=== PATIENT | female | born 1955 | race Caucasian/White ===

== ENCOUNTER 2016-12-31 23:57 | Emergency (ER) | payer MEDICARE ==
[2017-01-01] MEDS ORDERED: Sodium Chloride 0.9% 1000 ML 1,000 ML IV STA (00:10)
--- NOTE | 2017-01-01 00:14 | ERPHSYRPT ---
- History of Present Illness Time Seen by Provider: 01/01/17 00:11 Source: patient Exam Limitations: no limitations Physician History: 61-year-old female came to the emergency room with complaining of unable to urinate, and when She is dribbling L amount of urine with some blood in it. She has this problem for last 3 days. She denies any fever, chills, nausea, vomiting. Timing/Duration: day(s) (3 days) Onset Location: suprapubic Sexual intercourse history: non-contributory Modifying Factors: Improves With: nothing Associated Symptoms: dysuria, urinary frequency Allergies/Adverse Reactions: tramadol Allergy (Verified 04/08/16 10:34) Home Medications: Levothyroxine Sodium [Synthroid] 75 mcg PO DAILY 09/20/13 [History] Simvastatin 40 mg [Zocor 40 mg] 40 mg PO HS 09/20/13 [History] Duloxetine HCl 30 mg [Cymbalta 30 MG Capsule] 60 mg PO DAILY 03/10/15 [ History] Omeprazole 20 MG [Prilosec 20 mg] 20 mg PO BID 03/10/15 [History] Albuterol Common Canister [Proventil Common Canister] UD 04/08/16 [History ] Aripiprazole [Abilify] 2 mg PO DAILY 04/08/16 [History] Budesonide/Formoterol Fumarate [Symbicort 160-4.5 Mcg Inhaler] 2 puffs IH BID [History] Cyclobenzaprine HCl 10 mg [Cyclobenzaprine 10 MG] 10 mg PO HS 04/08/16 [ History] Diclofenac Sodium 75 mg PO BID 04/08/16 [History] Ergocalciferol (Vitamin D2) [Vitamin D2] 50,000 unit PO DAILY 04/08/16 [History] Hydrocodone Bit/Acetaminophen [Hydrocodon-Acetaminoph 7.5-325] BID 04/08/16 [ History] Losartan Potassium 25 mg PO DAILY 04/08/16 [History] Magnesium Oxide [Magnesium] 400 mg PO DAILY 04/08/16 [History] Hx Tetanus, Diphtheria Vaccination/Date Given: Yes Hx Influenza Vaccination/Date Given: No Hx Pneumococcal Vaccination/Date Given: No - Review of Systems Constitutional: No Fever, No Chills Eyes: No Symptoms Ears, Nose, & Throat: No Symptoms Respiratory: No Cough, No Dyspnea Cardiac: No Chest Pain, No Edema, No Syncope Abdominal/Gastrointestinal: No Abdominal Pain, No Nausea, No Vomiting, No Diarrhea Genitourinary Symptoms: Dysuria, Frequency, Hematuria, Hesitancy, Incontinence, Urgency, Urinary Retention Musculoskeletal: No Back Pain, No Neck Pain Skin: No Rash Neurological: No Dizziness, No Focal Weakness, No Sensory Changes Psychological: No Symptoms Endocrine: No Symptoms All Other Systems: Reviewed and Negative - Past Medical History Pertinent Past Medical History: Yes Neurological History: No Pertinent History ENT History: No Pertinent History Cardiac History: Angina, High Cholesterol, Hypertension Respiratory History: Bronchitis, COPD Endocrine Medical History: Hypothyroidism Musculoskeletal History: Arthritis GI Medical History: No Pertinent History History: No Pertinent History Psycho-Social History: No Pertinent History, Anxiety Female Reproductive Disorders: No Pertinent History - Past Surgical History Past Surgical History: Yes Neuro Surgical History: No Pertinent History Cardiac: No Pertinent History Respiratory: No Pertinent History Gastrointestinal: No Pertinent History Genitourinary: No Pertinent History Musculoskeletal: Orthopedic Surgery Female Surgical History: Tubal Ligation Other Surgical History: left shoulder - Social History Smoking Status: Never smoker Exposure to second hand smoke: No Drug Use: none Patient Lives Alone: No - Nursing Vital Signs Nursing Vital Signs: Initial Vital Signs Temperature 97.9 F 01/01/17 00:00 Pulse Rate 92 H 01/01/17 00:00 Blood Pressure 152/73 01/01/17 00:00 O2 Sat by Pulse Oximetry 96 01/01/17 00:00 Pain Scale Pain Intensity 10 - Physical Exam General Appearance: no apparent distress, alert Eye Exam: PERRL/EOMI, eyes nml inspection Ears, Nose, Throat Exam: normal ENT inspection, TMs normal, pharynx normal, moist mucous membranes Neck Exam: normal inspection, non-tender, supple, full range of motion Respiratory Exam: normal breath sounds, lungs clear, No respiratory distress Cardiovascular Exam: regular rate/rhythm, normal heart sounds, normal peripheral pulses Gastrointestinal/Abdomen Exam: soft, No tenderness, No mass Back Exam: normal inspection, normal range of motion, No CVA tenderness, No vertebral tenderness Extremity Exam: normal inspection, normal range of motion, pelvis stable Neurologic Exam: alert, oriented x 3, 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, 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, normal mood/affect, sensation nml, No motor deficits Skin Exam: normal color, warm, dry Lymphatic Exam: No adenopathy - Course Nursing assessment & vital signs reviewed: Yes Ordered Tests: Active Orders 24 hr Category Date Time Status Catheter-[place] STAT Care 01/01/17 00:10 Active IV Insertion STAT Care 01/01/17 00:18 Active CBC W DIFF Stat Lab 01/01/17 00:20 Completed CMP Stat Lab 01/01/17 00:20 Completed CULTURE,URINE Stat Lab 01/01/17 00:39 Received UA W/ MICROSCOPIC Stat Lab 01/01/17 00:39 Completed Urine Triage Profile Stat Lab 01/01/17 00:39 Completed Medication Summary Discontinued Medications Generic Name Dose Route Start Last Admin Trade Name Freq PRN Reason Stop Dose Admin Sodium Chloride 1,000 mls @ 999 mls/hr 01/01/17 00:10 01/01/17 00:33 Sodium Chloride 0.9% 1000 Ml IV 01/01/17 01:10 999 mls/hr .Q1H1M STA Administration Sodium Chloride Confirm 01/01/17 00:19 Sodium Chloride 0.9% 1000 Ml Administered 01/01/17 00:20 Dose 1,000 mls @ ud .ROUTE .STK-MED ONE Lab/Rad Data: Laboratory Result Diagrams 01/01/17 00:20 01/01/17 00:20 Laboratory Results 01/01/17 01/01/17 01/01/17 Range/Units 00:39 00:39 00:20 WBC (4.0-10.5) K/mm3 RBC (4.1-5.4) M/mm3 Hgb (12.0-16.0) gm/dl Hct (35-47) % MCV (78-100) fl MCH (26-32) pg MCHC (32-36) g/dl RDW (11.5-14.0) % Plt Count (150-450) K/mm3 MPV (6-9.5) fl Gran % (36.0-66.0) % Lymphocytes % (24.0-44.0) % Monocytes % (0.0-12.0) % Eosinophils % (0.00-5.0) % Basophils % (0.0-0.4) % Basophils # (0-0.4) Sodium 144 (136-145) mEq/L Potassium 3.9 (3.5-5.1) mEq/L Chloride 106 (98-107) mEq/L Carbon Dioxide 28.1 (21-32) mEq/L Anion Gap 13.6 (5-15) MEQ/L BUN 9 (9-20) mg/dL Creatinine 0.92 (0.55-1.30) mg/dl Estimated GFR > 60 ML/MIN Glucose 145 H (70-110) MG/DL Calcium 10.0 (8.5-10.1) mg/dL Total Bilirubin 0.20 (0.2-1.0) mg/dL AST 78 H (15-37) U/L ALT 79 H (12-78) U/L Alkaline Phosphatase 101 (46-116) U/L Serum Total Protein 7.2 (6.4-8.2) gm/dL Albumin 3.1 L (3.4-5.0) g/dL Ur Collection Type VOID Urine Color YELLOW (YELLOW) Urine Appearance CLOUDY (CLEAR) Urine pH 7.0 (5-6) Ur Specific [place] 1.015 (1.005-1.025) Urine Protein 100 (Negative) Urine Ketones NEGATIVE (NEGATIVE) Urine Blood 250 (0-5) Ken/ul Urine Nitrite NEGATIVE (NEGATIVE) Urine Bilirubin NEGATIVE (NEGATIVE) Urine Urobilinogen NORMAL (0-1) mg/dL Ur Leukocyte Esterase 2+ (NEGATIVE) Urine Microscopic RBC 15-25 (0-2) /HPF Urine Microscopic WBC 50-100 (0-5) /HPF Ur Epithelial Cells FEW (FEW) /HPF Urine Bacteria FEW (NEGATIVE) /HPF Urine Glucose NEGATIVE (NEGATIVE) mg/dL Urine Opiates Level NEG. (NEGATIVE) Ur Methadone NEG. (NEGATIVE) Urine Barbiturates NEG. (NEGATIVE) Ur Phencyclidine (PCP) NEG. (NEGATIVE) Urine Amphetamine NEG. (NEGATIVE) U Benzodiazepine Level NEG. (NEGATIVE) Urine Cocaine NEG. (NEGATIVE) Urine Marijuana (THC) NEG. (NEGATIVE) Specimen Received 01/01/17 0035 01/01/17 Range/Units 00:20 WBC 10.4 (4.0-10.5) K/mm3 RBC 3.90 L (4.1-5.4) M/mm3 Hgb 11.5 L (12.0-16.0) gm/dl Hct 36.6 (35-47) % MCV 93.8 (78-100) fl MCH 29.4 (26-32) pg MCHC 31.4 L (32-36) g/dl RDW 14.4 H (11.5-14.0) % Plt Count 255 (150-450) K/mm3 MPV 9.5 (6-9.5) fl Gran % 54.0 (36.0-66.0) % Lymphocytes % 36.0 (24.0-44.0) % Monocytes % 7.0 (0.0-12.0) % Eosinophils % 2.4 (0.00-5.0) % Basophils % 0.6 (0.0-0.4) % Basophils # 0.06 (0-0.4) Sodium (136-145) mEq/L Potassium (3.5-5.1) mEq/L Chloride (98-107) mEq/L Carbon Dioxide (21-32) mEq/L Anion Gap (5-15) MEQ/L BUN (9-20) mg/dL Creatinine (0.55-1.30) mg/dl Estimated GFR ML/MIN Glucose (70-110) MG/DL Calcium (8.5-10.1) mg/dL Total Bilirubin (0.2-1.0) mg/dL AST (15-37) U/L ALT (12-78) U/L Alkaline Phosphatase (46-116) U/L Serum Total Protein (6.4-8.2) gm/dL Albumin (3.4-5.0) g/dL Ur Collection Type Urine Color (YELLOW) Urine Appearance (CLEAR) Urine pH (5-6) Ur Specific [place] (1.005-1.025) Urine Protein (Negative) Urine Ketones (NEGATIVE) Urine Blood (0-5) Ken/ul Urine Nitrite (NEGATIVE) Urine Bilirubin (NEGATIVE) Urine Urobilinogen (0-1) mg/dL Ur Leukocyte Esterase (NEGATIVE) Urine Microscopic RBC (0-2) /HPF Urine Microscopic WBC (0-5) /HPF Ur Epithelial Cells (FEW) /HPF Urine Bacteria (NEGATIVE) /HPF Urine Glucose (NEGATIVE) mg/dL Urine Opiates Level (NEGATIVE) Ur Methadone (NEGATIVE) Urine Barbiturates (NEGATIVE) Ur Phencyclidine (PCP) (NEGATIVE) Urine Amphetamine (NEGATIVE) U Benzodiazepine Level (NEGATIVE) Urine Cocaine (NEGATIVE) Urine Marijuana (THC) (NEGATIVE) Specimen Received - Progress Progress: improved Air Movement: good Blood Culture(s) Obtained: No Antibiotics given: No Counseled pt/family regarding: lab results, diagnosis, need for follow-up - Departure Time of Disposition: 01:16 Departure Disposition: Home Clinical Impression: Urinary tract infection Qualifiers: Urinary tract infection type: acute pyelonephritis Qualified Code(s): N10 - Acute pyelonephritis Condition: Stable Critical Care Time: No Referrals: PATY ABDI [Primary Care Provider] - Instructions: Urinary Tract Infection (UTI) Additional Instructions: URINARY TRACT INFECTION 1. You will need to drink plenty of fluids in order to keep your urinary system flushed. These fluids should mainly consist of water and juices. 2. Take medications as directed. You need to completely finish any antiobiotic prescription given. 3. Try to avoid coffee, tea, alcohol, and seasoned foods as they may cause bladder irritation. 4. If signs and symptoms persist after 3-4 days, you will need to follow up with your family physician. 5. Female Patients: A. Avoid intercourse for 3-4 days. B. Empty bladder before and after intercourse to reduce risk of re- infection. C. After emptying bladder, wipe from front to back to reduce the risk of re- infection. Prescriptions: Ciprofloxacin [Cipro 500 MG] 500 mg PO BIDAC #20 tablet
[2017-01-01] MEDS ORDERED: Sodium Chloride 0.9% 1000 ML 1,000 ML ONE (00:19)
[2017-01-01 00:26] LABS: BASOPHIL % 0.6 % (0.0-0.4); Eosinophil % 2.4 % (0.00-5.0); Mean Cell Volume 93.8 fl (78-100); Mean Platelet Volume 9.5 fl (6-9.5); Platelet Count 255 K/mm3 (150-450); Red Cell Distribution Width 14.4 % (11.5-14.0); White Blood Count 10.4 K/mm3 (4.0-10.5)
[2017-01-01 00:30] LABS: Mean Corpuscular Hemoglobin 29.4 pg (26-32)
[2017-01-01 00:45] LABS: Collection Type VOID
[2017-01-01 00:45] LABS: ALBUMIN 3.1 g/dL (3.4-5.0); ALKALINE PHOSPHATASE 101 U/L (46-116); ANION GAP 13.6 MEQ/L (5-15); BLOOD UREA NITROGEN 9 mg/dL (9-20); CHLORIDE 106 mEq/L (98-107); Carbon Dioxide 28.1 mEq/L (21-32); Glucose 145 MG/DL (70-110); Potassium 3.9 mEq/L (3.5-5.1); SGOT/AST 78 U/L (15-37); SGPT/ALT 79 U/L (12-78); SODIUM 144 mEq/L (136-145); Total Protein 7.2 gm/dL (6.4-8.2)
[2017-01-01 00:46] LABS: ADD URINE CULTURE? YES (NO); Bacteria FEW /HPF (NEGATIVE); Bilirubin NEGATIVE (NEGATIVE); Blood 250 Ery/ul (0-5); COMPLETE URINE MICROSCOPIC? YES; Epithelial Cells FEW /HPF (FEW); Glucose NEGATIVE (NEGATIVE); Leukocyte Esterase 2+ (NEGATIVE); WBC 50-100 /HPF (0-5)
[2017-01-01] MEDS ORDERED: Rocephin 1000 MG INJ** 1,000 MG in Sodium Chloride 0.9% 100 ML IVPB 100 ML IV ONE (01:14)
[2017-01-01] MEDS ORDERED: ROCEPHIN 1 Gm-D5w 50 ml Bag** 1 G/50 ML IVPB IV ONE (01:14)
[2017-01-01 01:47] VITALS: BP 138/79; PULSE 82; O2SAT 97
== END 2017-01-01 01:43 | disposition home or self-care (01) ==
LOC: ED 23:57
DX: N10 Acute pyelonephritis (principal); Z79.891 Long term (current) use of opiate analgesic
CPT/HCPCS: 36000; 36415; 51702; 80053; 80307; 81000; 85025; 87086; 96360; 96365; 99284; J0696

== ENCOUNTER 2017-04-22 16:13 | Emergency (ER) | payer MEDICARE ==
[2017-04-22] MEDS ORDERED: DUONEB 0.5-3 MG/3 ml Neb IH ONE ×2 (16:50→16:59)
[2017-04-22] MEDS ORDERED: ROCEPHIN 1 Gm-D5w 50 ml Bag** 1 G/50 ML IVPB IV STA (16:50)
--- NOTE | 2017-04-22 16:57 | ERPHSYRPT ---
- History of Present Illness Time Seen by Provider: 04/22/17 16:30 Source: patient Exam Limitations: clinical condition Patient Subjective Stated Complaint: PT states "I woke up this morning and I was short of breath. I have been coughing like crazy and having hot flashes." Triage Nursing Assessment: Pt alert and oriented X 3, skin pwd. Pt ambulates without difficulty, able to speak in clear full sentences. lung sounds are clear. Physician History: PATIENT WITH A HISTORY OF ASTHMA COMPLAINS OF A PRODUCTIVE COUGH, WHITE SPUTUM ASSOCIATED WITH DYSPNEA, DENIES CHEST PAIN, FEVER OR CHILLS. Timing/Duration: today Cough Quality/Degree: productive cough Possible Cause: occasional episodes Modifying Factors: Improves With: coughing, deep breath Associated Symptoms: cough International travel in last 2 weeks: No Allergies/Adverse Reactions: tramadol Allergy (Verified 04/08/16 10:34) Home Medications: Levothyroxine Sodium [Synthroid] 75 mcg PO DAILY 09/20/13 [History] Simvastatin 40 mg [Zocor 40 mg] 40 mg PO HS 09/20/13 [History] Duloxetine HCl 30 mg [Cymbalta 30 MG Capsule] 60 mg PO DAILY 03/10/15 [ History] Omeprazole 20 MG [Prilosec 20 mg] 20 mg PO BID 03/10/15 [History] Aripiprazole [Abilify] 2 mg PO DAILY 04/08/16 [History] Budesonide/Formoterol Fumarate [Symbicort 160-4.5 Mcg Inhaler] 2 puffs IH BID [History] Ergocalciferol (Vitamin D2) [Vitamin D2] 50,000 unit PO DAILY 04/08/16 [History] Hydrocodone Bit/Acetaminophen [Hydrocodon-Acetaminoph 7.5-325] BID 04/08/16 [ History] Losartan Potassium 25 mg PO DAILY 04/08/16 [History] Magnesium Oxide [Magnesium] 400 mg PO DAILY 04/08/16 [History] Albuterol Sulfate [Ventolin Hfa] 1 puff IH DAILY 04/22/17 [History] Buprenorphine HCl [Belbuca] 600 mcg BC Q12H 04/22/17 [History] Fish Oil/Dha/Epa [Fish Oil 1,200 mg Fish Oil] 1 each PO DAILY 04/22/17 [History] Gabapentin [Gabapentin] 600 mg PO TID 04/22/17 [History] Hx Tetanus, Diphtheria Vaccination/Date Given: No Hx Influenza Vaccination/Date Given: No Hx Pneumococcal Vaccination/Date Given: No Immunizations Up to Date: Yes - Review of Systems Constitutional: No Fever, No Chills Eyes: No Symptoms Ears, Nose, & Throat: No Symptoms Respiratory: Cough, No Dyspnea Cardiac: No Symptoms, No Chest Pain, No Edema, No Syncope Abdominal/Gastrointestinal: No Symptoms, No Abdominal Pain, No Nausea, No Vomiting, No Diarrhea Genitourinary Symptoms: No Symptoms, No Dysuria Musculoskeletal: No Back Pain, No Neck Pain Skin: No Rash Neurological: No Dizziness, No Focal Weakness, No Sensory Changes Psychological: No Symptoms Endocrine: No Symptoms All Other Systems: Reviewed and Negative - Past Medical History Pertinent Past Medical History: Yes Neurological History: No Pertinent History ENT History: No Pertinent History Cardiac History: Angina, High Cholesterol, Hypertension Respiratory History: Bronchitis, COPD Endocrine Medical History: Hypothyroidism Musculoskeletal History: Arthritis GI Medical History: No Pertinent History History: No Pertinent History Psycho-Social History: No Pertinent History, Anxiety Female Reproductive Disorders: No Pertinent History - Past Surgical History Past Surgical History: Yes Neuro Surgical History: No Pertinent History Cardiac: No Pertinent History Respiratory: No Pertinent History Gastrointestinal: No Pertinent History Genitourinary: No Pertinent History Musculoskeletal: Orthopedic Surgery Female Surgical History: Tubal Ligation Other Surgical History: left shoulder - Social History Smoking Status: Former smoker Exposure to second hand smoke: Yes Drug Use: none Patient Lives Alone: No - Female History Hx Last Menstrual Period: menopause Hx Now: No - Nursing Vital Signs Nursing Vital Signs: Initial Vital Signs Temperature 98.2 F 04/22/17 16:14 Pulse Rate 64 04/22/17 16:14 Respiratory Rate 20 04/22/17 16:14 Blood Pressure 150/94 04/22/17 16:14 O2 Sat by Pulse Oximetry 96 04/22/17 16:14 Pain Scale Pain Intensity 0 - Physical Exam General Appearance: no apparent distress, alert Eye Exam: PERRL/EOMI, eyes nml inspection Ears, Nose, Throat Exam: normal ENT inspection, TMs normal, pharynx normal, moist mucous membranes Neck Exam: normal inspection, non-tender, supple, full range of motion Respiratory Exam: lungs clear, diminished breath sounds (NO WHEEZES OR RHONCHI) , other (DECREASED BREATH SOUNDS BASES), No respiratory distress Cardiovascular Exam: regular rate/rhythm, normal heart sounds Gastrointestinal/Abdomen Exam: soft, normal bowel sounds (NONTENDER), No tenderness Back Exam: normal inspection, No CVA tenderness, No vertebral tenderness Extremity Exam: normal inspection, normal range of motion Neurologic Exam: alert, oriented x 3, cooperative, normal mood/affect, sensation nml, No motor deficits Skin Exam: normal color, warm, dry, No rash Lymphatic Exam: No adenopathy SpO2: 96 Oxygen Delivery: Room Air - Course EKG Interpreted by Me: RATE, Sinus Rhythm, NORMAL AXIS - Radiology Exams Chest X-ray Interpretation: Interpreted by me (LEFT BASILAR ATELECTASIS VS INFILTRATE) Ordered Tests: Active Orders 24 hr Category Date Time Status EKG-ER Only STAT Care 04/22/17 16:27 Active IV Insertion STAT Care 04/22/17 16:50 Active CHEST 1 VIEW (PORTABLE) Stat Exams 04/22/17 16:51 Taken CBC W DIFF Stat Lab 04/22/17 17:32 Completed Respiratory Nebulizer STAT RT 04/22/17 16:51 Completed Medication Summary Generic Name Dose Route Start Last Admin Trade Name Freq PRN Reason Stop Dose Admin Sodium Chloride 1,000 mls @ 50 mls/hr 04/22/17 17:00 04/22/17 17:14 Sodium Chloride 0.9% 1000 Ml IV 05/22/17 16:59 50 mls/hr .Q20H DYLAN Administration Discontinued Medications Generic Name Dose Route Start Last Admin Trade Name Freq PRN Reason Stop Dose Admin Albuterol/Ipratropium 3 ml 04/22/17 16:50 04/22/17 17:04 Duoneb 0.5-3 Mg/3 Ml Neb IH 04/22/17 16:51 3 ml STAT ONE Administration Albuterol/Ipratropium Confirm 04/22/17 16:59 Duoneb 0.5-3 Mg/3 Ml Neb Administered 04/22/17 17:00 Dose 3 ml IH .STK-MED ONE Ceftriaxone Sodium/Dextrose 1 g in 50 mls @ 100 mls/hr 04/22/17 16:50 17:14 Rocephin 1 Gm-D5w 50 Ml Bag IV 04/22/17 17:19 100 mls/hr STAT STA Administration Ceftriaxone Sodium/Dextrose Confirm 04/22/17 17:08 Rocephin 1 Gm-D5w 50 Ml Bag Administered 04/22/17 17:09 Dose 1 g in 50 mls @ ud IV .STK-MED ONE Lab/Rad Data: Laboratory Result Diagrams 04/22/17 17:32 Laboratory Results 04/22/17 Range/Units 17:32 WBC 6.3 (4.0-10.5) K/mm3 RBC 4.05 L (4.1-5.4) M/mm3 Hgb 11.9 L (12.0-16.0) gm/dl Hct 38.4 (35-47) % MCV 94.8 (78-100) fl MCH 29.3 (26-32) pg MCHC 31.0 L (32-36) g/dl RDW 13.8 (11.5-14.0) % Plt Count 183 (150-450) K/mm3 MPV 9.6 H (6-9.5) fl Gran % 43.4 (36.0-66.0) % Lymphocytes % 43.9 (24.0-44.0) % Monocytes % 7.3 (0.0-12.0) % Eosinophils % 4.6 (0.00-5.0) % Basophils % 0.8 (0.0-0.4) % Basophils # 0.05 (0-0.4) - Progress Progress: improved Progress Note: 04/22/17 16:57 ADMINISTERED DUONEB, IV NORMAL SALINE 100ML/HR, ROCEPHIN 1GM IVPB Counseled pt/family regarding: lab results, diagnosis, need for follow-up, rad results - Departure Time of Disposition: 18:20 Departure Disposition: Home ([id number]) Clinical Impression: ACUTE BRONCHITIS Condition: Stable Critical Care Time: No Referrals: PATY ABDI [Primary Care Provider] - Additional Instructions: CONTINUE TO USE INHALERS DIRECTED. ANTIBIOTIC OMNICEF 300MG TWICE DAILY FOR 10 DAYS. TAKE OVER THE COUNTER COUGH FOR COUGHING. OBTAIN NEBULIZER MACHINE AND USE ALBUTEROL NEBULIZER EVERY 4 HOURS NEEDED. CONSULT YOUR PRIMARY CARE PROVIDER FOR FOLLOWUP Prescriptions: Albuterol 2.5 mg/3 ml Neb [Proventil 2.5 mg/3 ml Neb] 2.5 mg IH STAT #30 neb Cefdinir [Omnicef 300 mg] 300 mg PO BID #20 capsule
[2017-04-22] MEDS ORDERED: Sodium Chloride 0.9% 1000 ML 1,000 ML IV SCH (17:00)
[2017-04-22] MEDS ORDERED: Sodium Chloride 0.9% 1000 ML 1,000 ML ONE (17:08)
[2017-04-22] MEDS ORDERED: ROCEPHIN 1 Gm-D5w 50 ml Bag** 1 G/50 ML IVPB IV ONE (17:08)
[2017-04-22 17:35] LABS: BASOPHIL % 0.8 % (0.0-0.4); Basophil (Absolute #) 0.05 (0-0.4); Eosinophil % 4.6 % (0.00-5.0); Eosinophil (Absolute #) 0.29 (0-0.5); Granulocyte Absolute (ANC) 2.72 (1.4-6.9); Granulocytes % 43.4 % (36.0-66.0); Hematocrit 38.4 % (35-47); Hemoglobin 11.9 gm/dl (12.0-16.0); Lymphocyte (Absolute #) 2.75 (1.0-4.6); Lymphocytes % 43.9 % (24.0-44.0); Mean Cell Volume 94.8 fl (78-100); Mean Platelet Volume 9.6 fl (6-9.5); Monocyte (Absolute #) 0.46 (0.0-1.3); Monocytes % 7.3 % (0.0-12.0); Platelet Count 183 K/mm3 (150-450); Red Blood Count 4.05 M/mm3 (4.1-5.4); Red Cell Distribution Width 13.8 % (11.5-14.0); White Blood Count 6.3 K/mm3 (4.0-10.5)
[2017-04-22 17:44] LABS: Mean Corpuscular Hemoglobin 29.3 pg (26-32)
[2017-04-22 17:58] VITALS: O2SAT 96
[2017-04-22 18:44] VITALS: BP 158/79; PULSE 78
--- NOTE | 2017-04-22 22:48 | XRAY ---
Indication: Cough and dyspnea. Comparison: March 10, 2015. Portable chest demonstrates stable left midlung fibrosis/scarring. Remaining lungs clear. Heart is not enlarged for AP portable technique. Bony thorax intact again with mild degenerative changes. Impression: Stable nonacute chest with chronic features.
== END 2017-04-22 18:45 | disposition home or self-care (01) ==
LOC: ED 16:13
DX: J20.9 Acute bronchitis, unspecified (principal)
CPT/HCPCS: 36415; 71045; 85025; 93005; 94640; 96360; 96361; 96365; 99284; J0696; A9270-GY

== ENCOUNTER 2018-11-14 18:52 | Emergency (ER) | payer MEDICARE ==
[2018-11-14] MEDS ORDERED: Zofran 4 MG/2 ML VIAL IV ONE (19:51)
[2018-11-14] MEDS ORDERED: Sodium Chloride 0.9% 1000 ML 1,000 ML IV STA (19:51)
[2018-11-14] MEDS ORDERED: MORPHINE SULFATE 4 MG INJ IV ONE (19:51)
[2018-11-14] MEDS ORDERED: Zofran 4 MG/2 ML VIAL ONE (19:56)
[2018-11-14] MEDS ORDERED: MORPHINE SULFATE 4 MG INJ ONE (19:57)
[2018-11-14] MEDS ORDERED: Sodium Chloride 0.9% 1000 ML 1,000 ML ONE (19:57)
--- NOTE | 2018-11-14 19:58 | ERPHSYRPT ---
- History of Present Illness Time Seen by Provider: 11/14/18 19:46 Historian: patient Exam Limitations: no limitations Patient Subjective Stated Complaint: pt states she has been having back pain for 4 weeks and has been getting worse. state she has had chills off and on for 4 weeks also. states she does not have a thermometer at home to check her temp. Triage Nursing Assessment: pt alert and oreinted, answers questions approp. pt ambualtory with slow steady gait noted. respirations nonlabored with lungs cta. abd soft and nontender with bowel sounds noted x4 quads. some tenderness noted to lower back with palpation. Physician History: 63 year old white female arrives withj complaints of bilateral flank pain radiating to low abdomen for 4 weekschills off and on for past several days\ past medical history includes : hypothyroidism, bronchitis, copd, angina, hypercholerterolism, hypertension, arthritis, anxiety, depression Past surgical history includes tubal ligation, orthopedic surgery, left shoulder. Timing/Duration: week(s) (4 weeks) Activities at Onset: none Quality: aching Abdominal Pain Onset Location: flank (bilateral flanks, bilateral low abdomen) Severity of Pain-Max: moderate Severity of Pain-Current: mild Associated Symptoms: back (bilateral flank pain), fever/chills, No chest pain, No diaphoresis, No diarrhea, No fatigue, No headache, No heartburn, No loss of appetite, No nausea, No neck pain, No rash, No shortness of breath, No syncope, No vomiting, No weakness Previous symptoms: no recent treatment Allergies/Adverse Reactions: tramadol Allergy (Verified 11/14/18 19:21) Home Medications: Levothyroxine Sodium [Synthroid] 75 mcg PO DAILY 09/20/13 [History] Simvastatin 40 mg [Zocor 40 mg] 40 mg PO HS 09/20/13 [History] Duloxetine HCl 30 mg [Cymbalta 30 MG Capsule] 60 mg PO DAILY 03/10/15 [ History] Omeprazole 20 MG [Prilosec 20 mg] 20 mg PO BID 03/10/15 [History] Aripiprazole [Abilify] 2 mg PO DAILY 04/08/16 [History] Budesonide/Formoterol Fumarate [Symbicort 160-4.5 Mcg Inhaler] 2 puffs IH BID [History] Hydrocodone Bit/Acetaminophen [Hydrocodon-Acetaminoph 7.5-325] 1 tab PO QID [History] Losartan Potassium 25 mg PO DAILY 04/08/16 [History] Magnesium Oxide [Magnesium] 400 mg PO DAILY 04/08/16 [History] Albuterol Sulfate [Ventolin Hfa] 1 puff IH BID 04/22/17 [History] Buprenorphine HCl [Belbuca] 600 mcg BC Q12H 04/22/17 [History] Fish Oil/Dha/Epa [Fish Oil 1,200 mg Fish Oil] 1 each PO DAILY 04/22/17 [History] Gabapentin 600 mg PO TID 04/22/17 [History] Allopurinol 100 mg [Zyloprim 100 mg] 100 mg PO DAILY 11/14/18 [History] Hydroxychloroquine Sulfate 200 mg PO BID 11/14/18 [History] Liraglutide [Victoza 2-Rashaun] 1.8 mg SQ DAILY 11/14/18 [History] Hx Tetanus, Diphtheria Vaccination/Date Given: No Hx Influenza Vaccination/Date Given: No Hx Pneumococcal Vaccination/Date Given: No Immunizations Up to Date: No - Review of Systems Constitutional: No Fever, No Chills Eyes: No Symptoms Ears, Nose, & Throat: No Symptoms Respiratory: No Cough, No Dyspnea Cardiac: No Chest Pain, No Edema, No Syncope Abdominal/Gastrointestinal: Abdominal Pain (bilateral low abdominal pain), No Nausea, No Vomiting, No Diarrhea, No Constipation, No Hematemesis, No Hematochezia, No Melena, No Dysphagia, No Appetite Changes Genitourinary Symptoms: Flank Pain, No Dysuria Musculoskeletal: No Back Pain, No Neck Pain Skin: No Symptoms Neurological: No Symptoms Psychological: No Symptoms Endocrine: No Symptoms All Other Systems: Reviewed and Negative - Past Medical History Pertinent Past Medical History: Yes Neurological History: No Pertinent History ENT History: No Pertinent History Cardiac History: Angina, High Cholesterol, Hypertension Respiratory History: Bronchitis, COPD Endocrine Medical History: Hypothyroidism Musculoskeletal History: Arthritis GI Medical History: No Pertinent History History: No Pertinent History Psycho-Social History: No Pertinent History, Anxiety, Depression Female Reproductive Disorders: No Pertinent History - Past Surgical History Past Surgical History: Yes Neuro Surgical History: No Pertinent History Cardiac: No Pertinent History Respiratory: No Pertinent History Gastrointestinal: No Pertinent History Genitourinary: No Pertinent History Musculoskeletal: Orthopedic Surgery Female Surgical History: Tubal Ligation Other Surgical History: left shoulder - Social History Smoking Status: Never smoker Exposure to second hand smoke: Yes Drug Use: none Patient Lives Alone: No - Nursing Vital Signs Nursing Vital Signs: Initial Vital Signs Temperature 97.7 F 11/14/18 19:11 Pulse Rate 93 H 11/14/18 19:11 Respiratory Rate 18 11/14/18 19:11 Blood Pressure 132/75 11/14/18 19:11 O2 Sat by Pulse Oximetry 95 11/14/18 19:11 Pain Scale Pain Intensity [] 7 Pain Intensity 4 - Physical Exam General Appearance: alert Eye Exam: PERRL/EOMI, eyes nml inspection Ears, Nose, Throat Exam: normal ENT inspection, pharynx normal, moist mucous membranes Neck Exam: normal inspection, non-tender, supple, full range of motion Respiratory Exam: normal breath sounds, lungs clear, No respiratory distress Cardiovascular Exam: regular rate/rhythm, normal heart sounds, capillary refill <2 sec Gastrointestinal/Abdomen Exam: soft, tenderness (llq tenderness), No mass Back Exam: normal inspection, normal range of motion, CVA tenderness, No vertebral tenderness Extremity Exam: normal inspection, normal range of motion, pelvis stable Neurologic Exam: alert, oriented x 3, cooperative, brick setter II-XII nml as tested, normal mood/affect, nml cerebellar function, sensation nml, No motor deficits Skin Exam: normal color, warm, dry SpO2 Interpretation: normal (95%) SpO2: 95 - Course Nursing assessment & vital signs reviewed: Yes - CT Exams Abdomen/Pelvis CT Interpretation: Discussed w/radiologist (CT abdomen and pelvis: Impression compared to November 19, 2015. The right perinephric stranding, possible nephritis. Nicole fatty liver and colonic diverticulosis. Remaining abdomen and pelvis negative) Ordered Tests: Active Orders 24 hr Category Date Time Status IV Insertion STAT Care 11/14/18 19:51 Active ABDOMEN AND PELVIS W/0 CONTRAS [CT] Stat Exams 11/14/18 20:34 Taken AMYLASE Stat Lab 11/14/18 20:00 Completed BLOOD CULTURE Stat Lab 11/14/18 21:15 Received CBC W DIFF Stat Lab 11/14/18 20:00 Completed CMP Stat Lab 11/14/18 20:00 Completed CULTURE,URINE Stat Lab 11/14/18 20:05 Received HCG QUALITATIVE,SERUM Stat Lab 11/14/18 20:00 Completed LIPASE Stat Lab 11/14/18 20:00 Completed UA W/RFX UR CULTURE Stat Lab 11/14/18 20:05 Completed Medication Summary Discontinued Medications Generic Name Dose Route Start Last Admin Trade Name Marta PRN Reason Stop Dose Admin Sodium Chloride 1,000 mls @ 999 mls/hr 11/14/18 19:51 11/14/18 20:08 Sodium Chloride 0.9% 1000 Ml IV 11/14/18 20:51 999 mls/hr .Q1H1M STA Administration Sodium Chloride Confirm 11/14/18 19:57 Sodium Chloride 0.9% 1000 Ml Administered 11/14/18 19:58 Dose 1,000 mls @ ud .ROUTE .STK-MED ONE Ceftriaxone Sodium/Dextrose 1 g in 50 mls @ 100 mls/hr 11/14/18 20:35 20:41 Rocephin 1 Gm-D5w 50 Ml Bag IV 11/14/18 21:04 100 ml/hr STAT STA 100 mls/hr Administration Ceftriaxone Sodium/Dextrose Confirm 11/14/18 20:37 Rocephin 1 Gm-D5w 50 Ml Bag Administered 11/14/18 20:38 Dose 1 g in 50 mls @ ud IV .STK-MED ONE Morphine Sulfate 4 mg 11/14/18 19:51 11/14/18 20:08 Morphine Sulfate 4 Mg Inj IV 11/14/18 19:52 4 mg STAT ONE Administration Morphine Sulfate Confirm 11/14/18 19:57 Morphine Sulfate 4 Mg Inj Administered 11/14/18 19:58 Dose 4 mg .ROUTE .STK-MED ONE Ondansetron HCl 4 mg 11/14/18 19:51 11/14/18 20:08 Zofran 4 Mg/2 Ml Vial IV 11/14/18 19:52 4 mg STAT ONE Administration Ondansetron HCl Confirm 11/14/18 19:56 Zofran 4 Mg/2 Ml Vial Administered 11/14/18 19:57 Dose 4 mg .ROUTE .STK-MED ONE Lab/Rad Data: Laboratory Result Diagrams 11/14/18 20:00 11/14/18 20:00 Laboratory Results 11/14/18 11/14/18 11/14/18 Range/Units 20:05 20:00 20:00 WBC (4.0-10.5) K/mm3 RBC (4.1-5.4) M/mm3 Hgb (12.0-16.0) gm/dl Hct (35-47) % MCV (78-100) fl MCH (26-32) pg MCHC (32-36) g/dl RDW (11.5-14.0) % Plt Count (150-450) K/mm3 MPV (6-9.5) fl Gran % (36.0-66.0) % Eos # (Auto) (0-0.5) Absolute Lymphs (auto) (1.0-4.6) Absolute Monos (auto) (0.0-1.3) Lymphocytes % (24.0-44.0) % Monocytes % (0.0-12.0) % Eosinophils % (0.00-5.0) % Basophils % (0.0-0.4) % Absolute Granulocytes (1.4-6.9) Basophils # (0-0.4) Sodium 140 (137-145) mmol/L Potassium 4.3 (3.5-5.1) mmol/L Chloride 106 (98-107) mmol/L Carbon Dioxide 28 (22-30) mmol/L Anion Gap 10.4 (5-15) MEQ/L BUN 11 (7-17) mg/dL Creatinine 0.66 (0.52-1.04) mg/dL Estimated GFR > 60.0 ML/MIN Glucose 83 (74-106) mg/dL Calcium 10.3 H (8.4-10.2) mg/dL Total Bilirubin 0.80 (0.2-1.3) mg/dL AST 31 (14-36) U/L ALT 23 (0-35) U/L Alkaline Phosphatase 80 (38-126) U/L Serum Total Protein 7.4 (6.3-8.2) g/dL Albumin 3.7 (3.5-5.0) g/dL Amylase 59 (30-110) U/L Lipase 44 (23-300) U/L Serum , Qual NEGATIVE (Negative) Urine Color JACK (YELLOW) Urine Appearance CLOUDY (CLEAR) Urine pH 5.0 (5-6) Ur Specific [place] 1.024 (1.005-1.025) Urine Protein 100 (Negative) Urine Ketones NEGATIVE (NEGATIVE) Urine Blood NEGATIVE (0-5) Ken/ul Urine Nitrite NEGATIVE (NEGATIVE) Urine Bilirubin NEGATIVE (NEGATIVE) Urine Urobilinogen 4 (0-1) mg/dL Ur Leukocyte Esterase MODERATE (NEGATIVE) Urine WBC (Auto) >100 (0-5) /HPF Urine RBC (Auto) 16-25 (0-2) /HPF U Epithel Cells (Auto) FEW (FEW) /HPF Urine Bacteria (Auto) RARE (NEGATIVE) /HPF Urine Mucus (Auto) MANY (NEGATIVE) /HPF Urine Culture Reflexed YES (NO) Urine Glucose NEGATIVE (NEGATIVE) mg/dL 11/14/18 Range/Units 20:00 WBC 9.1 (4.0-10.5) K/mm3 RBC 3.86 L (4.1-5.4) M/mm3 Hgb 11.6 L (12.0-16.0) gm/dl Hct 36.2 (35-47) % MCV 93.8 (78-100) fl MCH 30.0 (26-32) pg MCHC 32.0 (32-36) g/dl RDW 14.3 H (11.5-14.0) % Plt Count 191 (150-450) K/mm3 MPV 9.6 H (6-9.5) fl Gran % 61.6 (36.0-66.0) % Eos # (Auto) 0.08 (0-0.5) Absolute Lymphs (auto) 2.44 (1.0-4.6) Absolute Monos (auto) 0.95 (0.0-1.3) Lymphocytes % 26.8 (24.0-44.0) % Monocytes % 10.4 (0.0-12.0) % Eosinophils % 0.9 (0.00-5.0) % Basophils % 0.3 (0.0-0.4) % Absolute Granulocytes 5.62 (1.4-6.9) Basophils # 0.03 (0-0.4) Sodium (137-145) mmol/L Potassium (3.5-5.1) mmol/L Chloride (98-107) mmol/L Carbon Dioxide (22-30) mmol/L Anion Gap (5-15) MEQ/L BUN (7-17) mg/dL Creatinine (0.52-1.04) mg/dL Estimated GFR ML/MIN Glucose (74-106) mg/dL Calcium (8.4-10.2) mg/dL Total Bilirubin (0.2-1.3) mg/dL AST (14-36) U/L ALT (0-35) U/L Alkaline Phosphatase (38-126) U/L Serum Total Protein (6.3-8.2) g/dL Albumin (3.5-5.0) g/dL Amylase (30-110) U/L Lipase (23-300) U/L Serum , Qual (Negative) Urine Color (YELLOW) Urine Appearance (CLEAR) Urine pH (5-6) Ur Specific [place] (1.005-1.025) Urine Protein (Negative) Urine Ketones (NEGATIVE) Urine Blood (0-5) Ken/ul Urine Nitrite (NEGATIVE) Urine Bilirubin (NEGATIVE) Urine Urobilinogen (0-1) mg/dL Ur Leukocyte Esterase (NEGATIVE) Urine WBC (Auto) (0-5) /HPF Urine RBC (Auto) (0-2) /HPF U Epithel Cells (Auto) (FEW) /HPF Urine Bacteria (Auto) (NEGATIVE) /HPF Urine Mucus (Auto) (NEGATIVE) /HPF Urine Culture Reflexed (NO) Urine Glucose (NEGATIVE) mg/dL - Progress Progress: improved Progress Note: 11/14/18 22:18 Patient feeling better after IV fluids and morphine Phenergan. Patient with the greater than 100 white cells per high-power field in her urine 16-25 red cells in her urine CT of the abdomen and pelvis remarkable for new mild right perinephric stranding possible nephritis. Stable fatty liver and colonic diverticulosis remaining abdomen and pelvis are negative. Patient is given Rocephin 1 g IV blood cultures and urine cultures have been obtained. Will plan to discharge patient with prescription for Bactrim dsorally twice a day for 10 days. Patient will be given 2 [place] tablets for tonight. She is to fill her prescription for [place] at home tomorrow. Is to contact Dr. kay his office tomorrow and arrange followup appointment. 11/14/18 22:25 - Departure Departure Disposition: Home Clinical Impression: Bilateral flank pain, Lower abdominal pain, Pyelonephritis Condition: Fair Critical Care Time: No Referrals: PATY KAY [Primary Care Provider] - Additional Instructions: Return home. Plenty of fluids clear fluids only 24-48 hours if abdominal pain. Bactrim ds one orally twice a day for 10 days. [place] as prescribed by your pain disaster or damage control specialist. Followup with Dr. kay, call tomorrow and arrange followup appointment. Return for acute distress or for severe symptoms. Prescriptions: Smz/Tmp Ds Tablet [Bactrim Ds Tablet] 1 tab PO BID #20 tablet
[2018-11-14 20:11] LABS: Appearance CLOUDY (CLEAR); Bacteria RARE /HPF (NEGATIVE); Bilirubin NEGATIVE (NEGATIVE); Blood NEGATIVE Ery/ul (0-5); Epithelial Cells FEW /HPF (FEW); Glucose NEGATIVE (NEGATIVE); Ketones NEGATIVE (NEGATIVE); Leukocyte Esterase MODERATE (NEGATIVE); Mucus MANY /HPF (NEGATIVE); Nitrite NEGATIVE (NEGATIVE); Protein,Urine Dip 100 (Negative); Specific Gravity 1.024 (1.005-1.025); Urobilinogen 4 mg/dL (0-1); WBC >100 /HPF (0-5)
[2018-11-14 20:12] LABS: BASOPHIL % 0.3 % (0.0-0.4); Basophil (Absolute #) 0.03 (0-0.4); Eosinophil % 0.9 % (0.00-5.0); Eosinophil (Absolute #) 0.08 (0-0.5); Granulocyte Absolute (ANC) 5.62 (1.4-6.9); Granulocytes % 61.6 % (36.0-66.0); Hematocrit 36.2 % (35-47); Hemoglobin 11.6 gm/dl (12.0-16.0); Lymphocyte (Absolute #) 2.44 (1.0-4.6); Lymphocytes % 26.8 % (24.0-44.0); Mean Cell Volume 93.8 fl (78-100); Mean Platelet Volume 9.6 fl (6-9.5); Monocyte (Absolute #) 0.95 (0.0-1.3); Monocytes % 10.4 % (0.0-12.0); Platelet Count 191 K/mm3 (150-450); Red Blood Count 3.86 M/mm3 (4.1-5.4); Red Cell Distribution Width 14.3 % (11.5-14.0); White Blood Count 9.1 K/mm3 (4.0-10.5)
[2018-11-14 20:24] LABS: ALBUMIN 3.7 g/dL (3.5-5.0); ALKALINE PHOSPHATASE 80 U/L (38-126); AMYLASE 59 U/L (30-110); ANION GAP 10.4 MEQ/L (5-15); BLOOD UREA NITROGEN 11 mg/dL (7-17); CHLORIDE 106 mmol/L (98-107); Calcium 10.3 mg/dL (8.4-10.2); Carbon Dioxide 28 mmol/L (22-30); Creatinine 1 0.66 mg/dL (0.52-1.04); Glucose 83 mg/dL (74-106); LIPASE 44 U/L (23-300); Potassium 4.3 mmol/L (3.5-5.1); SGOT/AST 31 U/L (14-36); SGPT/ALT 23 U/L (0-35); SODIUM 140 mmol/L (137-145); Total Protein 7.4 g/dL (6.3-8.2)
[2018-11-14] MEDS ORDERED: ROCEPHIN 1 Gm-D5w 50 ml Bag** 1 G/50 ML IVPB IV STA (20:35)
[2018-11-14] MEDS ORDERED: ROCEPHIN 1 Gm-D5w 50 ml Bag** 1 G/50 ML IVPB IV ONE (20:37)
[2018-11-14 22:33] VITALS: BP 150/75; O2SAT 98
[2018-11-14 22:39] VITALS: PULSE 71
--- NOTE | 2018-11-15 08:52 | XRAY ---
Indication: Periumbilical and bilateral flank pain. UTI. Hematuria. Multiple contiguous axial images obtained through the abdomen and pelvis without contrast as ordered. Comparison: November 19, 2015. Lung bases demonstrates mild bibasilar fibrosis/scarring. No infiltrate or effusion. Heart is not enlarged. Noncontrasted stomach and bowel loops appear nonobstructed. Normal appendix. Stable low descending and sigmoid diverticulosis. No free fluid/air. Right kidney now demonstrates minimal perinephric stranding, possible nephritis. Stable diffuse fatty liver and hepatic/splenic calcified granulomas. Remaining liver, gallbladder, pancreas, spleen, adrenal glands, kidneys, ureters, bladder, and uterus appear unremarkable for noncontrast exam. Stable mild aortoiliac calcifications without AAA. Osseous structures again demonstrates minimal degenerative changes throughout the spine. Impression: 1. New minimal right perinephric stranding possibly nephritis. Correlate clinically. 2. Stable colonic diverticulosis, fatty liver, and evidence for granulomatous disease. 3. Remaining CT abdomen/pelvis without contrast exam is negative. CTDI 23.68
== END 2018-11-14 22:39 | disposition home or self-care (01) ==
LOC: ED 18:52
DX: R10.30 Lower abdominal pain, unspecified (principal); N12 Tubulo-interstitial nephritis, not specified as acute or chronic
CPT/HCPCS: 36415; 74176; 80053; 81001; 81025; 82150; 83690; 85025; 87040; 87077; 87086; 87186; 96360; 96365; 96374; 96375; 99284; J0696; J2270; J2405

== ENCOUNTER 2019-05-08 07:34 | Day surgery (SDC) | payer MEDICARE ==
[2019-05-08] MEDS ORDERED: Lactated Ringers 1,000 ML IV ONE (08:59)
[2019-05-08 09:00] VITALS: O2SAT 96
[2019-05-08] MEDS: Lactated Ringers 1,000 ML IV SCH (09:05)
[2019-05-08] MEDS ORDERED: SUBLIMAZE 100 MCG/2 ML ONE ×2 (10:19→10:51)
[2019-05-08] MEDS ORDERED: DIPRIVAN 200 MG/20 ML IV ONE (10:19)
[2019-05-08] MEDS ORDERED: TORAdol 30 mg Injection ONE (10:33)
[2019-05-08] MEDS ORDERED: Zofran 4 MG/2 ML VIAL ONE (10:33)
[2019-05-08] MEDS ORDERED: Decadron 4 MG INJ ONE (10:33)
[2019-05-08 12:08] VITALS: BP 140/77; PULSE 79
--- NOTE | 2019-05-09 11:28 | OP ---
SURGERY DATE/TIME: 05/08/2019 1017 PREOPERATIVE DIAGNOSIS: Postmenopausal bleeding. POSTOPERATIVE DIAGNOSIS: Postmenopausal bleeding and endometrial lesion questionable polyp. PROCEDURE: Hysteroscopy, D&C with MyoSure resection of endometrial lesion. SURGEON: Mikey Lim D.O. LABEL PASTER: information technology auditor. ANESTHESIA: General. ESTIMATED BLOOD LOSS: Minimal. COMPLICATIONS: None. INDICATIONS: The risks, benefits, indications and alternatives of the procedure were reviewed with the patient prior to procedure. The patient understood the risk of infection, bleeding, bowel injury, bladder injury, ureteral injury, uterine perforation associated with the surgery and desires to have this surgery as a possible need to alleviate her current medical condition. DESCRIPTION OF PROCEDURE AND FINDINGS: At this point the patient is taken to the operating room, given general sedation, placed in dorsal lithotomy position, prepped and draped in usual sterile fashion. A weighted speculum is then placed in the patient's vagina and the anterior lip of the cervix is grasped with a single tooth tenaculum. Endocervical dilators are advanced through the endocervical canal as a means to dilate the cervix and at this point a 5 mm hysteroscope was then placed into the endocervical canal where visualization revealed while in the fundal region in the uterine cavity an approximately 1 x 1 cm endometrial lesion located on the posterior surface of the uterus. It appeared to be whitish-pinkish in color and at this point the MyoSure was introduced through the hysteroscopic channel and the MyoSure machine was turned on removing the lesion in its entirety without complication. No bleeding was noted. The rest of the uterine cavity appeared to be within normal limits with no other gross abnormalities. From this point the hysteroscope was then removed and a curette was then subsequently introduced into the uterine cavity where curettage was performed in all quadrants of the uterus retrieving a mild to moderate amount of tissue. From this point all instruments were then removed from the patient's uterine cavity as well as the vaginal region. The patient was then taken out of the dorsal lithotomy position and was then taken out of anesthesia and then taken to the recovery room in stable condition. All instruments and laps were accounted for x2.
== END 2019-05-08 12:10 | disposition home or self-care (01) ==
LOC: SDC 07:34
PROVIDERS: ATTEND Obstetrics & Gynecology
DX: N95.0 Postmenopausal bleeding (principal); N84.0 Polyp of corpus uteri; E11.9 Type 2 diabetes mellitus without complications; E78.5 Hyperlipidemia, unspecified; I10 Essential (primary) hypertension; Z79.899 Other long term (current) drug therapy
CPT/HCPCS: 58558; 58563; 82962; J1100; J1885; J2405; J2704; J3010

== ENCOUNTER 2019-11-20 19:14 | Emergency (ER) | payer MEDICARE ==
[2019-11-20] MEDS ORDERED: TORAdol 30 mg Injection IM ONE (22:29)
[2019-11-20] MEDS ORDERED: TORAdol 30 mg Injection ONE (22:32)
--- NOTE | 2019-11-20 22:34 | ERPHSYRPT ---
- History of Present Illness Time Seen by Provider: 11/20/19 20:00 Source: patient Exam Limitations: no limitations Patient Subjective Stated Complaint: pt here for a fall today, she states she fell outside when she stepped in a hole, pt co pain to right ankle, and forehea d, she aslo states she feels sleepy, no loc Triage Nursing Assessment: pt alert, walked in, resp easy, skin w/d/p. has face mask in place, has abrasion to left side of forehead, bruising to left thigh, moves all ext well Physician History: Patient is a 64-year-old female presents to our ED with complaints of pain to her right ankle right leg thigh and head injury. Patient states she was walking in her yard. Patient stepped in a hole that was dog by her pitbull dog. Patient twisted her ankle and fell forward hitting the left side of her head. No LOC. No nausea or vomiting. No associated chest pain or shortness of breath. The fall was mechanical. Pain described as an ache that is well localized. No radiation. Pain worse with movement and palpation. Pain improved with rest. No neck pain. Cervical spine cleared clinically. Patient voices no other complaints at this time. Occurred: just prior to arrival Loss of Consciousness: no loss of consciousness Quality: aching Severity of Pain-Max: moderate Severity of Pain-Current: mild Associated Symptoms (Fall): No denies symptoms, No abdominal pain, No back pain, No confusion, No chest pain, No extremity injury, No headache, No lightheadedness, No muscle spasms, No neck pain, No ringing in ears, No seizures, No slurred speech, No vision changes Allergies/Adverse Reactions: tramadol Allergy (Verified 11/20/19 19:57) Itching Home Medications: Levothyroxine Sodium [Synthroid] 75 mcg PO DAILY 09/20/13 [History] Simvastatin 40 mg [Zocor 40 mg] 40 mg PO HS 09/20/13 [History] Duloxetine HCl 30 mg [Cymbalta 30 MG Capsule] 60 mg PO DAILY 03/10/15 [History] Omeprazole 20 MG [Prilosec 20 mg] 20 mg PO BID 03/10/15 [History] Aripiprazole [Abilify] 2 mg PO DAILY 04/08/16 [History] Budesonide/Formoterol Fumarate [Symbicort 160-4.5 Mcg Inhaler] 2 puffs IH BID 04/08/16 [History] Hydrocodone Bit/Acetaminophen [Hydrocodon-Acetaminoph 7.5-325] 1 tab PO QID 04/08/16 [History] Losartan Potassium 25 mg PO DAILY 04/08/16 [History] Magnesium Oxide [Magnesium] 400 mg PO DAILY 04/08/16 [History] Albuterol Sulfate [Ventolin Hfa] 1 puff IH BID 04/22/17 [History] Fish Oil/Dha/Epa [Fish Oil 1,200 mg Fish Oil] 1 each PO DAILY 04/22/17 [History] Gabapentin 600 mg PO TID 04/22/17 [History] Allopurinol 100 mg [Zyloprim 100 mg] 100 mg PO DAILY 11/14/18 [History] Hydroxychloroquine Sulfate 200 mg PO BID 11/14/18 [History] Brimonidine Tartrate [Alphagan P 0.15%] 5 ml OP BID 05/01/19 [History] Fluconazole [Diflucan ] 150 mg PO DAILY 05/01/19 [History] Furosemide 20 mg [Lasix 20 mg] 20 mg PO DAILY 05/01/19 [History] Latanoprost/Pf [Latanoprost 0.005% Eye Drop] 7.5 ml OP DAILY 05/01/19 [History] Methylphenidate HCl [Methylphenidate ER] 10 mg PO DAILY 05/01/19 [History] Nystatin 30 gm TP BID 05/01/19 [History] Tizanidine HCl 4 mg [Zanaflex 4 MG] 4 mg PO BID 05/01/19 [History] Liraglutide [Victoza 2-Rashaun] 1.8 mg SQ DAILY 05/08/19 [History] Hx Tetanus, Diphtheria Vaccination/Date Given: No Hx Influenza Vaccination/Date Given: No Hx Pneumococcal Vaccination/Date Given: No Immunizations Up to Date: Yes Travel Risk - International Travel Have you traveled outside of the country in past 3 weeks: No - Coronavirus Screening Are you exhibiting any of the following symptoms?: No Close contact with a COVID-19 positive Pt in past 14-21 Days: No - Review of Systems Constitutional: No Symptoms, No Fever, No Chills Eyes: No Symptoms Ears, Nose, & Throat: No Symptoms Respiratory: No Symptoms, No Cough, No Dyspnea Cardiac: No Symptoms, No Chest Pain, No Edema, No Syncope Abdominal/Gastrointestinal: No Symptoms, No Abdominal Pain, No Nausea, No Vomiting, No Diarrhea Genitourinary Symptoms: No Symptoms, No Dysuria Musculoskeletal: No Symptoms, No Back Pain, No Neck Pain Skin: No Symptoms, No Rash Neurological: No Symptoms, No Dizziness, No Focal Weakness, No Sensory Changes Psychological: No Symptoms Endocrine: No Symptoms Hematologic/Lymphatic: No Symptoms Immunological/Allergic: No Symptoms All Other Systems: Reviewed and Negative - Past Medical History Pertinent Past Medical History: Yes Neurological History: No Pertinent History ENT History: No Pertinent History Cardiac History: Angina, High Cholesterol, Hypertension Respiratory History: Bronchitis, COPD Endocrine Medical History: Hypothyroidism Musculoskeletal History: Arthritis GI Medical History: No Pertinent History History: No Pertinent History Psycho-Social History: No Pertinent History, Anxiety, Depression Female Reproductive Disorders: No Pertinent History - Past Surgical History Past Surgical History: Yes Neuro Surgical History: No Pertinent History Cardiac: No Pertinent History Respiratory: No Pertinent History Gastrointestinal: No Pertinent History Genitourinary: No Pertinent History Musculoskeletal: Orthopedic Surgery Female Surgical History: Tubal Ligation Other Surgical History: left shoulder rota.cuff and spurs, right abd.large cyst or tumor non cancerous removed. - Social History Smoking Status: Never smoker Exposure to second hand smoke: No Drug Use: none Patient Lives Alone: No - Female History Hx Last Menstrual Period: psot Hx Now: No - Nursing Vital Signs Nursing Vital Signs: Initial Vital Signs Temperature 98.4 F 11/20/19 19:50 Pulse Rate 78 11/20/19 19:50 Respiratory Rate 16 11/20/19 19:50 Blood Pressure 143/89 11/20/19 19:50 O2 Sat by Pulse Oximetry 95 11/20/19 19:50 Pain Scale Pain Intensity 6 - Zander Coma Score Best Eye Response ([place]): (4) open spontaneously Best Verbal Response (Zander): (5) oriented Best Motor Response ([place]): (6) obeys commands Zander Total: 15 - Physical Exam General Appearance: no apparent distress, alert Head Injury: no evidence of injury Eye Exam: PERRL/EOMI ENT Exam: airway nml Neck Exam: normal inspection, No tenderness Respiratory/Chest Exam: normal breath sounds, No chest tenderness, No respiratory distress Cardiovascular Exam: normal heart sounds, regular rate/rhythm Gastrointestinal Exam: soft, No tenderness, No distention, No guarding, No ecchymosis Back Exam: normal inspection, No vertebral tenderness Extremity Exam: normal inspection, capillary refill <3 sec, pelvis stable, joint swelling, limited range of motion, other (Swelling to right ankle. Range of motion limited due to pain. Tenderness to palpation at the right leg and thigh. Knee range of motion within normal limits.), No amputations, No sullivan, No contusions, No calf tenderness, No deformities, No inflammation, No bony point tenderness, No hip tenderness, No joint effusion, No pain with movement, No sensory deficit, No tenderness Neurologic Exam: alert, oriented x 3, cooperative, nml cerebellar function, sensation nml, No motor deficits Skin Exam: normal color, warm, dry SpO2 Interpretation: normal SpO2: 97 O2 Delivery: Room Air - Radiology Exams Ankle X-ray Interpretation: Interpreted by me (No fracture dislocations. Degenerative changes. Heel spur.) Lower Leg X-ray Interpretation: Interpreted by me (No fractures or dislocations.) Femur X-ray Interpretation: Interpreted by me (No fractures or dislocations.) - CT Exams Head CT Interpretation: Tele-radiologist Report (No acute intracranial pathology.) Ordered Tests: Active Orders 24 hr Category Date Time Status ANKLE (3 VIEWS) Stat Exams 11/20/19 21:00 Taken FEMUR Stat Exams 11/20/19 20:59 Taken HEAD WITHOUT CONTRAST [CT] Stat Exams 11/20/19 21:00 Taken LOWER LEG Stat Exams 11/20/19 21:00 Taken Medication Summary Discontinued Medications Generic Name Dose Route Start Last Admin Trade Name Freq PRN Reason Stop Dose Admin Ketorolac Tromethamine 30 mg 11/20/19 22:29 Toradol 30 Mg Injection IM 11/20/19 22:30 STAT ONE Ketorolac Tromethamine Confirm 11/20/19 22:32 Toradol 30 Mg Injection Administered 11/20/19 22:33 Dose 30 mg .ROUTE .STK-MED ONE - Progress Progress: improved Progress Note: 11/20/19 22:39 Patient reassessed. She feels well. Pain improved. Imaging studies negative for acute pathology. Patient states she is ready for discharge. Patient agrees to follow-up with her primary care doctor within 48 hours for reevaluation. Counseled pt/family regarding: diagnosis, need for follow-up, rad results - Departure Departure Disposition: Home Clinical Impression: Ankle sprain, Heel spur, Fall, Head injury Condition: Stable Critical Care Time: No Referrals: ARTURO BOWEN [Primary Care Provider] - Additional Instructions: Discharge/Care Plan JASGAB MARTIN was seen on 11/20/19 in the Emergency Room. The patient was counseled regarding Diagnosis,Lab results, Imaging studies, need for follow up and when to return to the Emergency Room. Prescriptions given: Discharge Note I have spoken with the patient and/or caregivers. I have explained the patient's condition, diagnosis and treatment plan based on the information available to me at this time. I have answered the patient's and/or caregiver's questions and addressed any concerns. The patient and/or caregivers have as good understanding of the patient's diagnosis, condition and treatment plan as can be expected at this point. The vital signs have been stable. The patient's condition is stable and appropriate for discharge from the emergency department. The patient will pursue further outpatient evaluation with the primary care physician or other designated or consulting physician as outlined in the discharge instructions. The patient and/or caregivers are agreeable to this plan of care and follow-up instructions have been explained in detail. The patient and/or caregivers have received these instruction. The patient/and or caregivers are aware that any significant change in condition or worsening of symptoms should prompt an immediate return to this or the closest emergency department or call 911.
[2019-11-20 22:49] VITALS: BP 185/88; PULSE 86; O2SAT 96
--- NOTE | 2019-11-21 15:25 | XRAY ---
Exam: CT of the head without IV contrast from 11/20/2019. CTDI: 53.92 mGy Comparison: None. Indication: Patient fell striking left side of forehead, complains of headache. Technique: Non-IV contrast axial images were obtained through the brain. Reconstructed coronal and sagittal images were created and reviewed. Findings: The ventricles appear of unremarkable size and configuration. No focal mass effect or midline shift is seen. No acute intracranial bleed or abnormal extra-axial fluid collection is seen. The abbott matter-white matter junctions appear unremarkable. No cortical infarct is seen. Structures of the posterior fossa appear unremarkable. The cortical sulci and basilar cisterns appear unremarkable. Mild vascular calcification is seen within the distal vertebral arteries. I also see mild atherosclerotic calcification within the carotid siphons. The calvarium of the skull appears intact without evidence of fracture or other focal bone lesion. There is a thin linear septum within the posterior aspect of the left maxillary sinus. Small carlton bullosa are seen within the middle nasal turbinates, a bit more prominent on the left than right. There is slight deviation of the nasal septum toward the right. Otherwise, the paranasal sinuses appear clear. There is a relative paucity of mastoid air cells on the left as compared to the right. However, no mastoid sinus opacification or air-fluid levels are seen. The middle ear cavities appear grossly unremarkable. The orbits appear unremarkable. Impression: 1. No acute intracranial bleed or other acute intracranial process is seen. I do not appreciate any significant scalp hematoma overlying the left forehead. No fracture of the calvarium of the skull is seen.
--- NOTE | 2019-11-22 01:30 | XRAY ---
Exam: 3 view right ankle series from 11/20/2019. Comparison: 3 view right ankle series from 07/26/2017. Indication: Status post fall, complains of pain within right femur, lower leg, and ankle. Possible fracture. Report: AP, oblique, and lateral radiographs of the right ankle reveal no acute fracture or dislocation. The right ankle mortise is adequately maintained. Minimal spurring is again noted at the inferior margin of the medial malleolus. There is at least moderate soft tissue swelling overlying the medial malleolus and medial right hindfoot. Correlate clinically. A prominent talar beak/spur is seen along the dorsal aspect of the talus anterior to the ankle joint. I again note a mild plantar right calcaneal spur and a prominent posterior calcaneal enthesophyte. There appears to be a small os trigonum (accessory ossicle) posterior to the talus. The base of the right fifth metatarsal appears intact. Impression: 1. I see no acute right ankle fracture or dislocation. 2. There is moderate soft tissue swelling overlying the medial malleolus and medial right hindfoot. Correlate clinically. 3. Some arthritic spurring is seen about the right ankle joint and calcaneus, as described above.
--- NOTE | 2019-11-22 01:32 | XRAY ---
Exam: 2 views of the right lower leg from 11/20/2019. Comparison: None. Indication: Patient fell, complains of pain within right lower leg. Findings: AP and lateral radiographs of the right lower leg were obtained. I see no acute fracture of the right tibia or fibula. The right knee joint space appears unremarkable. There again appears to be a small os trigonum posterior to the talus. Mild spurring/talar beak is seen along the dorsal surface of the talus just anterior to the right ankle joint. There is a moderate-sized posterior calcaneal enthesophyte. Impression: 1. No acute fracture of the right tibia or fibula is seen.
--- NOTE | 2019-11-22 01:36 | XRAY ---
Exam: Right femur films from 11/20/2019. Comparison: None. Indication: Patient fell, possible fracture, complains of pain within right thigh. Findings: 2 AP images of the right femur, 2 frog-leg lateral views of the right hip including most of the femur, and a lateral image of the distal two thirds of the right femur were obtained. I see no acute right femur fracture or other significant focal bone lesion. The right hip joint space appears unremarkable. The right pubic ring is intact. The right sacroiliac joint appears unremarkable. Impression: 1. No acute right femur fracture is seen.
== END 2019-11-20 23:13 | disposition home or self-care (01) ==
LOC: ED 19:14
DX: S93.401A Sprain of unspecified ligament of right ankle, initial encounter (principal); M77.30 Calcaneal spur, unspecified foot; W17.2XXA Fall into hole, initial encounter; Y93.01 Activity, walking, marching and hiking; Y92.89 Other specified places as the place of occurrence of the external cause; Y99.8 Other external cause status; S00.81XA Abrasion of other part of head, initial encounter; J44.9 Chronic obstructive pulmonary disease, unspecified; Z79.899 Other long term (current) drug therapy; I10 Essential (primary) hypertension; E78.00 Pure hypercholesterolemia, unspecified
CPT/HCPCS: 70450; 73552; 73590; 73610; 96372; 99284; J1885

== ENCOUNTER 2019-11-27 06:52 | Day surgery (SDC) | payer MEDICARE ==
[2019-11-27] MEDS ORDERED: cefUROXime sodium 0.005 GM in Sodium Chloride Flush 30 ML*** 0.5 ML IJ SCH (07:00)
[2019-11-27] MEDS ORDERED: TETRACAINE 0.5% STERI-UNIT SOL OP ONE ×2 (07:00)
[2019-11-27] MEDS ORDERED: Ak-Dilate OPHTHALMIC*** 1.065 ML, Cyclogyl 1% OPHTH SOL 5 ML 1.065 ML, GATIFLOXACIN 0.5... OP ONE ×4 (07:00)
[2019-11-27] MEDS ORDERED: NON-FORMULARY ITEM OP ONE (07:00)
[2019-11-27] MEDS ORDERED: Lactated Ringers 1,000 ML IV SCH (07:00)
[2019-11-27] MEDS ORDERED: Lactated Ringers 1,000 ML IV ONE (07:22)
[2019-11-27] MEDS ORDERED: ACETAZOLAMIDE 250 MG TABLET PO ONE (09:00)
[2019-11-27] MEDS ORDERED: Zofran 4 MG/2 ML VIAL IV PRN (09:00)
[2019-11-27] MEDS ORDERED: DIPRIVAN 200 MG/20 ML IV ONE ×2 (09:13→09:37)
[2019-11-27] MEDS ORDERED: BETADINE 5% OPHTHALMIC 30 ML OP ONE (10:00)
[2019-11-27] MEDS ORDERED: Epinephrine Preservative Free 1 MG/ML INTRAOP ONE (10:00)
[2019-11-27] MEDS ORDERED: LIDOCAINE HCL 1% 50 MG/5 ML VL PF IJ ONE (10:00)
[2019-11-27 10:36] VITALS: O2SAT 97
[2019-11-27 10:43] VITALS: BP 155/82; PULSE 83
--- NOTE | 2019-11-28 08:43 | OP ---
DATE/TIME OF OPERATION: 11/27/2019 0921 TIME DICTATED: 1256 PREOPERATIVE DIAGNOSIS: Senile cataract of right eye. POSTOPERATIVE DIAGNOSIS: Senile cataract of right eye. SURGEON: Candy Chau MD GARBAGE COLLECTOR SUPERVISOR: None. OPERATION: Cataract extraction of right eye with an intraocular lens implant. STANDARD __X___ COMPLEX ANESTHESIA: MAC. ___X___ Monitored anesthesia care in combination with topical and intra-cameral anesthesia (because of the established specific risk of reflux, arrhythmias, or an anxiety attack associated with ocular manipulation as well as difficulty of the supervisor tunnel heading to manage such potentially catastrophic events while simultaneously attempting to complete the surgical procedure, it was deemed necessary for the patient's safety to have an anesthesiologist or a nurse labor operator present during the procedure whenever possible. The anesthesiologist or the nurse labor operator was utilized to monitor and regulate the intravenous sedation of the patient, so the patient was cooperative, relaxed, and comfortable). Topical anesthesia using Tetracaine eye drops together with intra cameral anesthesia using Lidocaine 1% MPF. The nurse was utilized to monitor the patient. ANESTHESIA PROVIDER: Harvey Edwards CRNA. COMPLICATIONS: None. BLOOD LOSS: None. INDICATIONS: The patient is undergoing cataract surgery in the hopes of eliminating the visual complaints and difficulty. PROCEDURE: After arriving at the facility's outpatient surgery area, an IV was started; the patient was given 5 mg of p.o. Versed. (If an anesthesia provider was not monitoring the patient) The patient was then given topical anesthetic Tetracaine eye drops. A cotton pellet was soaked into a solution of a combination of Zymaxid 0.5%, Enrique-Synephrine 2.5% and Ocufen (other drops might have been substituted referenced in the patient's record). The pellet was inserted by the RN into the lower conjunctival cul-de-sac with a sterile forceps and left for 20 minutes. The pellet was then removed by the RN with a sterile forceps before taking the patient to the operating room. The preoperative area nurse identified the patient and marked the correct eye to be operated on. I identified the correct eye to be operated on and marked it appropriately in the outpatient surgery area. The patient was then taken into the operating room. Tetracaine eye drops were installed again in the correct eye. The eyelids and the lashes and the lid margins were scrubbed with Betadine solution. One drop of the diluted Betadine solution was placed in the conjunctival cul-de-sac for 45 seconds and then was irrigated. A drop of Tetracaine Gel was placed in the conjunctival cul-de-sac. The patient's forehead was taped to secure it during the procedure. The patient was monitored. The patient was then draped in the usual way for this procedure. An eye speculum was used to separate the eyelids. The eye was then fixated and a temporal 2.5 mm incision was made in the clear cornea temporally at the limbus. Through the incision, 0.25 cc of 1% non-preserved lidocaine was injected into the anterior chamber for intracameral anesthesia. The anterior chamber was then filled with viscoelastic. The pupil was small. I felt that it would be safer to mechanically dilate the pupil. A Malyugin ring was used at this point which dilated the pupil. That was removed at the end of the procedure prior to aspiration of the viscoelastic from the anterior chamber and posterior to the intraocular lens implant. The cataract had a great amount of cortical changes. That rendered seeing the anterior capsule difficult for a safe performance of an anterior capsulotomy. I injected an air bubble into the anterior chamber. I then injected 1 ML of vision blue solution into the anterior chamber. The vision blue solution was irrigated from the anterior chamber after 30 seconds. The anterior capsule was stained which facilitated performing the anterior capsulotomy safely. After that was completed, a cystotome was introduced into the anterior chamber and a round anterior capsulotomy was performed. The capsule was removed by a forceps. Hydrodissection was next carried utilizing a 25-gauge cannula and balanced salt solution to delineate the cortical material from the capsule and the nucleus from the cortical material. The nucleus was rotated freely into the capsular bag with no difficulty. The phaco tip of the [facility] Phacoemulsifier was introduced into the anterior chamber and two grooves were made into the nucleus 90 degrees apart. Using two spatulas resulted into the nucleus being fractured into four quadrants. The phaco tip was then used to remove each quadrant of the nucleus. Viscoelastic was used during this process to protect the corneal endothelium. Once the entire nucleus was removed, the phaco tip then was removed and the irrigation tip was introduced into the eye and the cortex was removed. The posterior capsule was polished. It was noticed that there was a tear into the posterior capsule with few vitreous strands into the pupil plan. An anterior vitrectomy was performed. A 18.00 diopter, [id number], posterior chamber lens implant, was inspected and found to be grossly normal. The implant was inserted into the implant injector cartridge; Viscoelastic again was introduced into the anterior chamber, which filled the capsular bag. The implant injector's cartridge tip was placed at the limbal wound and the posterior chamber implant was released into the capsular bag and rotated appropriately. The implant was found to be into the capsular bag and it was centered. 0.2 ml of Tri-Moxi was introduced via 27 gauge cannula into the vitreous cavity through the ciliary processes. Viscoelastic was aspirated from the anterior chamber and posterior to the intraocular lens implant from the capsular bag using the irrigating tip. The anterior chamber was irrigated and filled with 5 cc antibiotic solution (500 cc of BSS plus 2 ml of Fortaz 100 mg/ml) ( if patient was not allergic to the medication). The lips of the corneal incision were hydrated using BSS solution. The anterior chamber was checked and found to be water tight. ___X__ One drop each of antibiotic, steroid and NSAID drops (refer to chart for drops used) were placed in the conjunctival cul-de-sac of the operated eye. Patient tolerated the procedure quite well and left the operating room in satisfactory condition. DISCHARGE SUMMARY: The patient was released in stable condition. The patient and those with the patient were given an instruction sheet as of how to care for the eye after surgery as well as counseling on any abnormal laboratory studies by the postoperative RN. The patient was also given an appointment card for follow-up in the office and is to call immediately for any difficulties including but not limited to pain in the eye, decreased vision, discharge from the eye, headache and or fever. DISCHARGE DIAGNOSIS: Pseudophakia of right eye.
== END 2019-11-27 10:57 | disposition home or self-care (01) ==
LOC: SDC 06:52
PROVIDERS: ATTEND Ophthalmology
DX: H25.811 Combined forms of age-related cataract, right eye (principal); E11.9 Type 2 diabetes mellitus without complications; I10 Essential (primary) hypertension; E78.00 Pure hypercholesterolemia, unspecified; E07.9 Disorder of thyroid, unspecified; Z79.899 Other long term (current) drug therapy; J44.9 Chronic obstructive pulmonary disease, unspecified
CPT/HCPCS: 82962; C1780; J0171; J2001; J2704; A9270-GY

== ENCOUNTER 2019-12-25 07:20 | Day surgery (SDC) | payer MEDICARE ==
[~2019-12-25 07:20] MED LIST: Ak-Dilate OPHTHALMIC*** 1.065 ML, Cyclogyl 1% OPHTH SOL 5 ML 1.065 ML, GATIFLOXACIN 0.5... OP ONE; DIPRIVAN 200 MG/20 ML IV ONE; Lactated Ringers 1,000 ML IV SCH; NON-FORMULARY ITEM OP ONE; TETRACAINE 0.5% STERI-UNIT SOL OP ONE
[2019-12-25] MEDS ORDERED: BETADINE 5% OPHTHALMIC 30 ML OP ONE (07:21)
[2019-12-25] MEDS ORDERED: Epinephrine Preservative Free 1 MG/ML IJ ONE (07:21)
[2019-12-25] MEDS ORDERED: LIDOCAINE HCL 1% 50 MG/5 ML VL PF IJ ONE (07:21)
[2019-12-25] MEDS ORDERED: Lactated Ringers 1,000 ML IV ONE (07:49)
[2019-12-25] MEDS ORDERED: cefUROXime sodium 0.005 GM in Sodium Chloride Flush 30 ML*** 0.5 ML IJ SCH (08:00)
[2019-12-25] MEDS ORDERED: Zofran 4 MG/2 ML VIAL IV PRN (09:00)
[2019-12-25] MEDS ORDERED: ACETAZOLAMIDE 250 MG TABLET PO ONE (09:00)
[2019-12-25 10:35] VITALS: O2SAT 96
[2019-12-25 10:47] VITALS: BP 148/88; PULSE 74
--- NOTE | 2019-12-26 11:22 | OP ---
DATE/TIME OF OPERATION: 12/25/2019 0953 TIME DICTATED: 12/25/2019 1314 PREOPERATIVE DIAGNOSIS: Senile cataract of left eye. POSTOPERATIVE DIAGNOSIS: Senile cataract of left eye. SURGEON: Candy Chau MD OFFICE MACHINE SERVICER: NONE OPERATION: Cataract extraction of left eye with an intraocular lens implant STANDARD __X___ COMPLEX ANESTHESIA: ___X___ Monitored anesthesia care in combination with topical and intra-cameral anesthesia (because of the established specific risk of reflux, arrhythmias, or an anxiety attack associated with ocular manipulation as well as difficulty of the production aide to manage such potentially catastrophic events while simultaneously attempting to complete the surgical procedure, it was deemed necessary for the patient's safety to have an anesthesiologist or a nurse research worker kitchen present during the procedure whenever possible. The anesthesiologist or the nurse research worker kitchen was utilized to monitor and regulate the intravenous sedation of the patient, so the patient was cooperative, relaxed, and comfortable). Topical anesthesia using Tetracaine eye drops together with intra cameral anesthesia using Lidocaine 1% MPF. The nurse was utilized to monitor the patient. ANESTHESIA PROVIDER: Harvey Edwards CRNA. COMPLICATIONS: None. BLOOD LOSS: None INDICATIONS: The patient is undergoing cataract surgery in the hopes of eliminating the visual complaints and difficulty. PROCEDURE: After arriving at the facility's outpatient surgery area, an IV was started; the patient was given 5 mg of p.o. Versed. (If an anesthesia provider was not monitoring the patient) The patient was then given topical anesthetic Tetracaine eye drops. A cotton pellet was soaked into a solution of a combination of Zymaxid 0.5%, Enrique-Synephrine 2.5% and Ocufen (other drops might have been substituted referenced in the patient's record). The pellet was inserted by the RN into the lower conjunctival cul-de-sac with a sterile forceps and left for 20 minutes. The pellet was then removed by the RN with a sterile forceps before taking the patient to the operating room. The preoperative area nurse identified the patient and marked the correct eye to be operated on. I identified the correct eye to be operated on and marked it appropriately in the outpatient surgery area. The patient was then taken into the operating room. Tetracaine eye drops were installed again in the correct eye. The eyelids and the lashes and the lid margins were scrubbed with Betadine solution. One drop of the diluted Betadine solution was placed in the conjunctival cul-de-sac for 45 seconds and then was irrigated. A drop of Tetracaine Gel was placed in the conjunctival cul-de-sac. The patient's forehead was taped to secure it during the procedure. The patient was monitored. The patient was then draped in the usual way for this procedure. An eye speculum was used to separate the eyelids. The eye was then fixated and a temporal 2.5 mm incision was made in the clear cornea temporally at the limbus. Through the incision, 0.25 cc of 1% non-preserved lidocaine was injected into the anterior chamber for intracameral anesthesia. The anterior chamber was then filled with viscoelastic. The pupil was small. I felt that it would be safer to mechanically dilate the pupil. A Malyugin ring was used at this point which dilated the pupil. That was removed at the end of the procedure prior to aspiration of the viscoelastic from the anterior chamber and posterior to the intraocular lens implant. The cataract had a great amount of cortical changes. That rendered seeing the anterior capsule difficult for a safe performance of an anterior capsulotomy. I injected an air bubble into the anterior chamber. I then injected 1 ML of vision blue solution into the anterior chamber. The vision blue solution was irrigated from the anterior chamber after 30 seconds. The anterior capsule was stained which facilitated performing the anterior capsulotomy safely. After that was completed, a cystotome was introduced into the anterior chamber and a round anterior capsulotomy was performed. The capsule was removed by a forceps. Hydrodissection was next carried utilizing a 25-gauge cannula and balanced salt solution to delineate the cortical material from the capsule and the nucleus from the cortical material. The nucleus was rotated freely into the capsular bag with no difficulty. The phaco tip of the [facility] Phacoemulsifier was introduced into the anterior chamber and two grooves were made into the nucleus 90 degrees apart. Using two spatulas resulted into the nucleus being fractured into four quadrants. The phaco tip was then used to remove each quadrant of the nucleus. Viscoelastic was used during this process to protect the corneal endothelium. Once the entire nucleus was removed, the phaco tip then was removed and the irrigation tip was introduced into the eye and the cortex was removed. The posterior capsule was polished. It was noticed that there was a tear into the posterior capsule with few vitreous strands into the pupil plan. An anterior vitrectomy was performed. An 18.00 diopter, [id number], posterior chamber lens implant, was inspected and found to be grossly normal. The implant was inserted into the implant injector cartridge; Viscoelastic again was introduced into the anterior chamber, which filled the capsular bag. The implant injector's cartridge tip was placed at the limbal wound and the posterior chamber implant was released into the capsular bag and rotated appropriately. The implant was found to be into the capsular bag and it was centered. 0.2 ml of Tri-Moxi was introduced via 27 gauge cannula into the vitreous cavity through the ciliary processes. Viscoelastic was aspirated from the anterior chamber and posterior to the intraocular lens implant from the capsular bag using the irrigating tip. The anterior chamber was irrigated and filled with 5 cc antibiotic solution (500 cc of BSS plus 2 ml of Fortaz 100 mg/ml) ( if patient was not allergic to the medication). The lips of the corneal incision were hydrated using BSS solution. The anterior chamber was checked and found to be water tight. __X____ One drop each of antibiotic, steroid and NSAID drops (refer to chart for drops used) were placed in the conjunctival cul-de-sac of the operated eye. Patient tolerated the procedure quite well and left the operating room in satisfactory condition. NOTE: At the end of the procedure, 1 mg into 0.1 ml Cefuroxime was introduced into the anterior chamber posterior to the intraocular lens implant. DISCHARGE SUMMARY: The patient was released in stable condition. The patient and those with the patient were given an instruction sheet as of how to care for the eye after surgery as well as counseling on any abnormal laboratory studies by the postoperative RN. The patient was also given an appointment card for follow-up in the office and is to call immediately for any difficulties including but not limited to pain in the eye, decreased vision, discharge from the eye, headache and or fever. DISCHARGE DIAGNOSIS: Pseudophakia of left eye
== END 2019-12-25 10:57 | disposition home or self-care (01) ==
LOC: SDC 07:20
PROVIDERS: ATTEND Ophthalmology
DX: H25.812 Combined forms of age-related cataract, left eye (principal); J44.9 Chronic obstructive pulmonary disease, unspecified; I10 Essential (primary) hypertension; E11.9 Type 2 diabetes mellitus without complications; E78.00 Pure hypercholesterolemia, unspecified; E07.9 Disorder of thyroid, unspecified; Z79.899 Other long term (current) drug therapy
CPT/HCPCS: 82962; C1780; J0171; J2001; J2704; A9270-GY

== ENCOUNTER 2021-10-12 20:26 | Emergency (ER) | payer MEDICARE ==
[2021-10-12] MEDS ORDERED: solu-MEDROL 125 MG, Sterile H2O 10 ml 2 ML IV ONE ×2 (20:37)
[2021-10-12] MEDS ORDERED: DUONEB 0.5-3 MG/3 ml Neb IH ONE ×2 (20:37→20:45)
[2021-10-12] MEDS ORDERED: solu-MEDROL ONE (20:50)
[2021-10-12] MEDS ORDERED: Sterile H2O 10 ml IJ ONE (20:50)
[2021-10-12 20:54] LABS: Absolute Neutrophil Ct (ANC) 3.32 x10^3/uL (1.4-6.9); Basophil (Absolute #) 0.05 x10^3/uL (0-0.4); Eosinophil (Absolute #) 0.14 x10^3/uL (0-0.5); Hematocrit 37.3 % (35-47); Hemoglobin 11.6 g/dL (12.0-16.0); Lymphocyte (Absolute #) 2.87 x10^3/uL (1.0-4.6); Lymphocytes % 41.1 % (24.0-44.0); Mean Corpuscular Hemoglobin 28.3 pg (26-32); Mean Corpuscular Hgb Concent. 31.1 g/dL (32-36); Mean Platelet Volume 10.1 fL (7.5-11.0); Monocyte (Absolute #) 0.59 x10^3/uL (0.0-1.3); Monocytes % 8.5 % (0.0-12.0); Neutrophil % 47.6 % (36.0-66.0); Platelet Count 161 x10^3/uL (150-450); Red Cell Distribution Width 14.6 % (11.5-14.0)
[2021-10-12 21:18] LABS: ALBUMIN 3.7 g/dL (3.5-5.0); ANION GAP 12.4 MEQ/L (5-15); BILIRUBIN,TOTAL 0.4 mg/dL (0.2-1.3); Creatinine 1 1.11 mg/dL (0.52-1.04); EST GLOMERULAR FILTRATION RATE 52.6 ML/MIN; Potassium 4.3 mmol/L (3.5-5.1); Total Protein 7.4 g/dL (6.3-8.2)
--- NOTE | 2021-10-12 21:50 | ERPHSYRPT ---
- History of Present Illness Time Seen by Provider: 10/12/21 20:30 Source: patient Exam Limitations: no limitations Patient Subjective Stated Complaint: pt states " I have been feeling more short of breath x3 days." Triage Nursing Assessment: Pt presents to ED through [facility] 1, pt c/o shortness of breath for 3 days, pt has hx of COPD, pt only uses a cpap at night but havent been using it d/t it being "defective" per pt, pt was 97% on RA but put on 2 L NC for comfort, pt denies chest pain, pt has wheezes located in bilateral lower lobes, Physician History: 66 years old female with history of COPD on CPAP presented in the ER via EMS with chief complaint of increasing shortness of breath for the last 3 days. Patient reports she uses CPAP at nighttime and has not been using for the last 3 days because it was not working. Reports having minimal productive cough and wheezing. Patient oxygen saturation is around 97% on room air on presentation. She is on 2 L just for comfort. Denies any chest pain or palpitations. No fever or chills reported. Patient does not seem to be in distress at all. Timing/Duration: day(s) (3), gradual onset, worse Activities at Onset: activity Severity of Dyspnea-Max: moderate Severity of Dyspnea-Current: mild Possible Cause: occasional episodes Modifying Factors: Improves With: exertion. Worsens With: coughing Associated Symptoms: cough, wheezing, productive cough, tightness, No chest pain/discomfort, No fever, No chills, No heaviness, No heart racing, No painful breathing Allergies/Adverse Reactions: tramadol Allergy (Verified 10/12/21 20:38) Itching Home Medications: Levothyroxine Sodium [Synthroid] 88 mcg PO DAILY 09/20/13 [History] Simvastatin 40 mg [Zocor 40 mg] 40 mg PO HS 09/20/13 [History] Duloxetine HCl 30 mg [Cymbalta 30 MG Capsule] 60 mg PO DAILY 03/10/15 [History] Omeprazole 20 MG [Prilosec 20 mg] 20 mg PO BID 03/10/15 [History] ARIPiprazole [Abilify] 2 mg PO DAILY 04/08/16 [History] Budesonide/Formoterol Fumarate [Symbicort 160-4.5 Mcg Inhaler] 2 puffs IH BID 04/08/16 [History] Losartan Potassium 25 mg PO DAILY 04/08/16 [History] Magnesium Oxide [Magnesium] 400 mg PO DAILY 04/08/16 [History] Albuterol Sulfate [Ventolin Hfa] 1 puff IH BID 04/22/17 [History] Gabapentin 600 mg PO TID 04/22/17 [History] Allopurinol 100 mg [Zyloprim 100 mg] 100 mg PO DAILY 11/14/18 [History] Hydroxychloroquine Sulfate 200 mg PO BID 11/14/18 [History] Brimonidine Tartrate [Alphagan P 0.15%] 5 ml OP BID 05/01/19 [History] Latanoprost/Pf [Latanoprost 0.005% Eye Drop] 7.5 ml OP DAILY 05/01/19 [History] Methylphenidate HCl [Methylphenidate ER] 10 mg PO DAILY 05/01/19 [History] Nystatin 30 gm TP BID 05/01/19 [History] Tizanidine HCl 4 mg [Zanaflex 4 MG] 4 mg PO BID 05/01/19 [History] Liraglutide [Victoza 2-Rashaun] 1.8 mg SQ DAILY 05/08/19 [History] Hydrocodone/Acetaminophen [Hydrocodone-Acetamin 10-325 mg^^^] 1 tab PO QID PRN 11/22/19 [History] Hx Tetanus, Diphtheria Vaccination/Date Given: No Hx Influenza Vaccination/Date Given: Yes Hx Pneumococcal Vaccination/Date Given: Yes Immunizations Up to Date: Yes Travel Risk - International Travel Have you traveled outside of the country in past 3 weeks: No - Coronavirus Screening Are you exhibiting any of the following symptoms?: No Close contact with a COVID-19 positive Pt in past 14-21 Days: No - Vaccine Status Have you recieved a Covid-19 vaccination: No - Review of Systems Constitutional: No Symptoms Eyes: No Symptoms Ears, Nose, & Throat: No Symptoms Respiratory: Cough, Dyspnea, Dyspnea on Exertion (YOON) Cardiac: No Symptoms Abdominal/Gastrointestinal: No Symptoms Genitourinary Symptoms: No Symptoms Musculoskeletal: No Symptoms Skin: No Symptoms Neurological: No Symptoms Psychological: No Symptoms Endocrine: No Symptoms Hematologic/Lymphatic: No Symptoms Immunological/Allergic: No Symptoms - Past Medical History Pertinent Past Medical History: Yes Neurological History: No Pertinent History ENT History: No Pertinent History Cardiac History: Angina, High Cholesterol, Hypertension Respiratory History: Bronchitis, COPD Endocrine Medical History: Diabetes Type II, Hyperthyroidism Musculoskeletal History: Arthritis GI Medical History: No Pertinent History History: No Pertinent History Psycho-Social History: No Pertinent History, Anxiety, Depression Female Reproductive Disorders: No Pertinent History Other Medical History: "Borderline diabetic"- takes victosa. chronic back and hip pain - Past Surgical History Past Surgical History: Yes Neuro Surgical History: No Pertinent History Cardiac: No Pertinent History Respiratory: No Pertinent History Gastrointestinal: No Pertinent History Genitourinary: No Pertinent History Musculoskeletal: Orthopedic Surgery Female Surgical History: Tubal Ligation Other Surgical History: left shoulder rota.cuff and spurs, right abd.large cyst or tumor non cancerous removed. - Social History Smoking Status: Current every day smoker Exposure to second hand smoke: No Drug Use: none Patient Lives Alone: No - Nursing Vital Signs Nursing Vital Signs: Initial Vital Signs Temperature 98.1 F 10/12/21 20:39 Pulse Rate 78 10/12/21 20:39 Respiratory Rate 16 10/12/21 20:39 Blood Pressure 196/74 10/12/21 20:39 O2 Sat by Pulse Oximetry 97 10/12/21 20:39 Pain Scale Pain Intensity 5 - Physical Exam General Appearance: no apparent distress, alert, anxiety Eye Exam: PERRL/EOMI, eyes nml inspection Ears, Nose, Throat Exam: hearing grossly normal, normal ENT inspection, normal pharynx Neck Exam: normal inspection, non-tender, supple, full range of motion Respiratory Exam: rhonchi, wheezing Cardiovascular/Chest Exam: normal heart sounds, regular rate/rhythm Abdominal/Gastrointestinal Exam: soft, normal bowel sounds, No tenderness Extremity Exam: non-tender Neurologic Exam: alert, oriented x 3, 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 tested Skin Exam: normal color SpO2 Interpretation: normal SpO2: 98 O2 Delivery: Room Air - Course EKG Interpreted by Me: RATE (74), Sinus Rhythm, NORMAL AXIS, NORMAL INTERVALS, NORMAL QRS Ordered Tests: Active Orders 24 hr Category Date Time Status Sap Project Manager STAT Care 10/12/21 20:37 Active EKG-ER Only STAT Care 10/12/21 20:37 Active IV Insertion STAT Care 10/12/21 20:37 Active Oxygen-ED Only Nasal Cannula 2 lpm Care 10/12/21 20:37 Active CHEST 1 VIEW (PORTABLE) Stat Exams 10/12/21 20:37 Taken CBC W DIFF Stat Lab 10/12/21 20:50 Completed CMP Stat Lab 10/12/21 20:50 Completed D-DIMER QUANTITATIVE Stat Lab 10/12/21 22:25 Completed Lactic Acid Stat Lab 10/12/21 20:50 Completed MAGNESIUM Stat Lab 10/12/21 20:50 Completed NT PRO BNP Stat Lab 10/12/21 20:50 Completed TROPONIN Q3H Lab 10/12/21 20:50 Completed TROPONIN Q3H Lab 10/13/21 02:45 Ordered TROPONIN Q3H Lab 10/13/21 05:45 Ordered TROPONIN Q3H Lab 10/13/21 08:45 Ordered Respiratory Therapy Assessment DAILY RT 10/12/21 20:51 Active Medication Summary Discontinued Medications Generic Name Dose Route Start Last Admin Trade Name Freq PRN Reason Stop Dose Admin Albuterol/Ipratropium 3 ml 10/12/21 20:37 10/12/21 20:49 Ipratropium/Albuterol Sulfate 3 Ml Ampul.Neb IH 10/12/21 20:38 3 ml STAT ONE Administration Albuterol/Ipratropium Confirm 10/12/21 20:45 Ipratropium/Albuterol Sulfate 3 Ml Ampul.Neb Administered 10/12/21 20:46 Dose 3 ml IH .STK-MED ONE Methylprednisolone Sodium 0 mg 10/12/21 20:37 10/12/21 21:13 Succinate 125 mg/ Sterile IV 10/12/21 20:38 125 mg Water 2 ml STAT ONE Administration Methylprednisolone Sodium Succinate Confirm 10/12/21 20:50 Methylprednis Sod Succ 125 Mg/2 Ml Vial Administered 10/12/21 20:51 Dose 125 mg .ROUTE .STK-MED ONE Sterile Water Confirm 10/12/21 20:50 Water For Injection,Sterile 10 Ml Vial Administered 10/12/21 20:51 Dose 10 ml IJ .STK-MED ONE Lab/Rad Data: Laboratory Result Diagrams 10/12/21 20:50 10/12/21 20:50 Laboratory Results 10/12/21 10/12/21 10/12/21 Range/Units 22:25 20:50 20:50 WBC (4.0-10.5) x10^3/uL RBC (4.1-5.4) x10^6/uL Hgb (12.0-16.0) g/dL Hct (35-47) % MCV (78-100) fL MCH (26-32) pg MCHC (32-36) g/dL RDW (11.5-14.0) % Plt Count (150-450) x10^3/uL MPV (7.5-11.0) fL Gran % (36.0-66.0) % Immature Gran % (Auto) (0.00-0.4) % Nucleat RBC Rel Count (0.00-0.1) % Eos # (Auto) (0-0.5) x10^3/uL Immature Gran # (Auto) (0.00-0.03) x10^3u/L Absolute Lymphs (auto) (1.0-4.6) x10^3/uL Absolute Monos (auto) (0.0-1.3) x10^3/uL Absolute Nucleated RBC (0.00-0.01) x10^3u/L Lymphocytes % (24.0-44.0) % Monocytes % (0.0-12.0) % Eosinophils % (0.00-5.0) % Basophils % (0.0-0.4) % Absolute Granulocytes (1.4-6.9) x10^3/uL Basophils # (0-0.4) x10^3/uL D-Dimer 0.77 H* (0.0-0.50) mg/L Sodium 141 (137-145) mmol/L Potassium 4.3 (3.5-5.1) mmol/L Chloride 104 (98-107) mmol/L Carbon Dioxide 29 (22-30) mmol/L Anion Gap 12.4 (5-15) MEQ/L BUN 13 (7-17) mg/dL Creatinine 1.11 H (0.52-1.04) mg/dL Estimated GFR 52.6 ML/MIN Glucose 92 (74-106) mg/dL Lactic Acid (0.4-2.0) Calcium 9.0 (8.4-10.2) mg/dL Magnesium 2.0 (1.6-2.3) mg/dL Total Bilirubin 0.40 (0.2-1.3) mg/dL AST 62 H (14-36) U/L ALT 37 H (0-35) U/L Alkaline Phosphatase 115 (38-126) U/L Troponin I < 0.012 (0.000-0.034) ng/mL NT-Pro-B Natriuret Pep 120 (0-900) pg/mL Serum Total Protein 7.4 (6.3-8.2) g/dL Albumin 3.7 (3.5-5.0) g/dL 10/12/21 10/12/21 10/12/21 Range/Units 20:50 20:50 00:00 WBC 7.0 (4.0-10.5) x10^3/uL RBC 4.10 (4.1-5.4) x10^6/uL Hgb 11.6 L (12.0-16.0) g/dL Hct 37.3 (35-47) % MCV 91.0 (78-100) fL MCH 28.3 (26-32) pg MCHC 31.1 L (32-36) g/dL RDW 14.6 H (11.5-14.0) % Plt Count 161 (150-450) x10^3/uL MPV 10.1 (7.5-11.0) fL Gran % 47.6 (36.0-66.0) % Immature Gran % (Auto) 0.1 (0.00-0.4) % Nucleat RBC Rel Count 0.0 (0.00-0.1) % Eos # (Auto) 0.14 (0-0.5) x10^3/uL Immature Gran # (Auto) 0.01 (0.00-0.03) x10^3u/L Absolute Lymphs (auto) 2.87 (1.0-4.6) x10^3/uL Absolute Monos (auto) 0.59 (0.0-1.3) x10^3/uL Absolute Nucleated RBC 0.00 (0.00-0.01) x10^3u/L Lymphocytes % 41.1 (24.0-44.0) % Monocytes % 8.5 (0.0-12.0) % Eosinophils % 2.0 (0.00-5.0) % Basophils % 0.7 (0.0-0.4) % Absolute Granulocytes 3.32 (1.4-6.9) x10^3/uL Basophils # 0.05 (0-0.4) x10^3/uL D-Dimer (0.0-0.50) mg/L Sodium (137-145) mmol/L Potassium (3.5-5.1) mmol/L Chloride (98-107) mmol/L Carbon Dioxide (22-30) mmol/L Anion Gap (5-15) MEQ/L BUN (7-17) mg/dL Creatinine (0.52-1.04) mg/dL Estimated GFR ML/MIN Glucose (74-106) mg/dL Lactic Acid 1.9 (0.4-2.0) Calcium (8.4-10.2) mg/dL Magnesium (1.6-2.3) mg/dL Total Bilirubin (0.2-1.3) mg/dL AST (14-36) U/L ALT (0-35) U/L Alkaline Phosphatase (38-126) U/L Troponin I < 0.012 (0.000-0.034) ng/mL NT-Pro-B Natriuret Pep (0-900) pg/mL Serum Total Protein (6.3-8.2) g/dL Albumin (3.5-5.0) g/dL - Progress Progress: improved Air Movement: fair Progress Note: 10/13/21 01:20 66-year-old is evaluated for increasing shortness of breath. Patient is not hypoxic. Chest x-ray showed some congestion but no obvious infiltrative process. She is given steroids and DuoNeb, on reevaluation feeling much better and maintaining oxygen saturation around 96% on room air. She has not negative troponins x2. Elevated D-dimer but patient refused to have CAT scan done. Discussed with patient in detail about risk of leaving without full work-up and worsening of condition which could be life-threatening but she still wants to leave. I would give her steroid and doxycycline for COPD exacerbation. She is advised to follow-up with us primary care for reevaluation. Discussed signs symptoms of worsening needing return to ER which she seems understanding. Antibiotics given: No Counseled pt/family regarding: lab results, diagnosis, need for follow-up, rad results - Departure Departure Disposition: AMA Clinical Impression: COPD exacerbation, Elevated d-dimer Condition: Stable Critical Care Time: No Referrals: OZ NGUYEN MD [Primary Care Provider] - Follow up/PCP as directed (Call in the morning for appointment for reevaluation) Instructions: Chronic Obstructive Pulmonary Disease, Exacerbation of COPD (DC) Additional Instructions: Use your CPAP daily. Use inhaler as recommended. Monitor your blood sugar regularly while being on steroids and may need to take some extra dose if it stays high, call primary care if status persistently high. Follow-up with primary care for reevaluation. Return to ER for any worsening difficulty breathing. Prescriptions: Prednisone 20 mg [Deltasone 20 mg] 40 mg PO DAILY 5 Days #10 tablet Doxycycline Hyclate 100 mg [Vibramycin 100 MG] 100 mg PO BID #14 tab Azithromycin 250 mg [Zithromax 250 MG TABLET] 250 mg PO ZPACK #6 tablet
[2021-10-12 23:22] VITALS: BP 193/82
[2021-10-13 00:15] VITALS: PULSE 70
[2021-10-13 01:23] VITALS: O2SAT 98
--- NOTE | 2021-10-13 09:19 | XRAY ---
Indication: Short of breath. COPD. Comparison: April 22, 2017. Portable apical lordotic chest demonstrates worsening bilateral mid to lower lung subsegmental atelectasis/scarring. Stable tiny calcified granulomas. Heart not enlarged for portable technique. Bony thorax intact again with osteopenia and degenerative changes.
== END 2021-10-13 01:22 | disposition left against medical advice (07) ==
LOC: ED 20:26
DX: J44.1 Chronic obstructive pulmonary disease with (acute) exacerbation (principal); R79.1 Abnormal coagulation profile; R06.02 Shortness of breath; R05.9 Cough, unspecified; E78.5 Hyperlipidemia, unspecified; I10 Essential (primary) hypertension; E11.9 Type 2 diabetes mellitus without complications; Z72.0 Tobacco use; Z99.81 Dependence on supplemental oxygen; Z79.891 Long term (current) use of opiate analgesic; Z79.899 Other long term (current) drug therapy; Z28.310 Unvaccinated for COVID-19; Z79.52 Long term (current) use of systemic steroids
CPT/HCPCS: 36000; 36415; 71045; 80053; 83605; 83735; 83880; 84484; 85025; 85379; 93005; 93041; 94640; 96374; 99284; J2930; A9270-GY

== ENCOUNTER 2022-07-21 09:32 | Day surgery (SDC) | payer MEDICARE ==
[2022-07-21] MEDS ORDERED: Sodium Chloride 0.9(Preservative Free) 10 ML IJ ONE (09:33)
[2022-07-21] MEDS ORDERED: LIDOCAINE HCL 1% 50 MG/5 ML VL PF IJ ONE (09:33)
[2022-07-21] MEDS ORDERED: Depo-Medrol 40 MG/ML IM ONE (09:33)
[2022-07-21] MEDS ORDERED: Versed 2 MG/2 ML Injection ONE (10:33)
[2022-07-21] MEDS ORDERED: SUBLIMAZE 100 MCG/2 ML ONE (11:29)
--- NOTE | 2022-07-21 12:13 | XRAY ---
Indication: Right L4-S1 transforaminal [place]. Intraoperative fluoroscopy provided for 51 seconds. 6 digital spot images submitted for interpretation demonstrates posterior needle tips projecting over the expected right L4 and L5 nerve roots. Small amount of contrast injected for needle tip placement. Correlate with intraoperative findings/report.
--- NOTE | 2022-07-21 12:22 | XRAY ---
51 seconds of fluoroscopy was used in surgery for a right L4-S1 transforaminal [place].
[2022-07-21] MEDS ORDERED: Lactated Ringers 1,000 ML IV ONE (15:40)
== END 2022-07-21 12:10 | disposition home or self-care (01) ==
LOC: SDC-PAIN 09:32
PROVIDERS: ATTEND Psychiatry & Neurology Pain Medicine
DX: M54.16 Radiculopathy, lumbar region (principal); E11.9 Type 2 diabetes mellitus without complications; Z79.899 Other long term (current) drug therapy
CPT/HCPCS: 64483; 64484; 72100; 77003; 82947; J1030; J2001; J2250; J3010; Q9966

== ENCOUNTER 2022-09-08 07:20 | Day surgery (SDC) | payer MEDICARE ==
[2022-09-08] MEDS ORDERED: LIDOCAINE HCL 1% 50 MG/5 ML VL PF IJ ONE (07:21)
[2022-09-08] MEDS ORDERED: DIPRIVAN 200 MG/20 ML IV ONE (08:45)
--- NOTE | 2022-09-08 10:07 | XRAY ---
Indication: Bilateral L4-S1 MBB. Intraoperative fluoroscopy was provided for 21 seconds. Single digital spot image submitted for interpretation demonstrates posterior needle tips projecting over the expected left and right L4-S1 nerve roots. Correlate with intraoperative findings/report.
--- NOTE | 2022-09-08 10:11 | XRAY ---
21 seconds of fluoroscopy was used in surgery for a bilateral L4-S1 MBB.
[2022-09-08] MEDS ORDERED: Lactated Ringers 1,000 ML IV ONE (15:11)
== END 2022-09-08 09:20 | disposition home or self-care (01) ==
LOC: SDC-PAIN 07:20
PROVIDERS: ATTEND Psychiatry & Neurology Pain Medicine
DX: M47.816 Spondylosis without myelopathy or radiculopathy, lumbar region (principal); E11.9 Type 2 diabetes mellitus without complications; Z79.899 Other long term (current) drug therapy
CPT/HCPCS: 64493; 64494; 72020; 77002; 82947; J2001; J2704

== ENCOUNTER 2022-12-08 08:10 | Day surgery (SDC) | payer MEDICARE ==
[2022-12-08] MEDS ORDERED: BUPIVACAINE 0.5% VIAL IJ ONE (08:11)
[2022-12-08] MEDS ORDERED: DIPRIVAN 200 MG/20 ML IV ONE (09:59)
[2022-12-08] MEDS ORDERED: Xylocaine-Mpf 2% 5 Ml Vial ONE (10:01)
[2022-12-08] MEDS ORDERED: Lactated Ringers 1,000 ML IV ONE (10:44)
--- NOTE | 2022-12-08 12:20 | XRAY ---
Indication: Bilateral L4-S1 MBB. Intraoperative fluoroscopy provided for 20 seconds. Single digital spot image submitted for interpretation demonstrates posterior needle tips projecting over the expected left and right L4-S1 nerve roots. Correlate with intraoperative findings/report.
--- NOTE | 2022-12-08 12:26 | XRAY ---
20 seconds of fluoroscopy was used in surgery for a bilateral L4-S1 MBB.
== END 2022-12-08 10:25 | disposition home or self-care (01) ==
LOC: SDC-PAIN 08:10
PROVIDERS: ATTEND Psychiatry & Neurology Pain Medicine
DX: M47.816 Spondylosis without myelopathy or radiculopathy, lumbar region (principal); E11.9 Type 2 diabetes mellitus without complications; Z79.899 Other long term (current) drug therapy
CPT/HCPCS: 64493; 64494; 72020; 77002; 82947; J2704

== ENCOUNTER 2023-01-26 10:08 | Day surgery (SDC) | payer MEDICARE ==
[2023-01-26] MEDS ORDERED: BUPIVACAINE 0.5% VIAL IJ ONE (10:09)
[2023-01-26] MEDS ORDERED: LIDOCAINE HCL 1% 50 MG/5 ML VL PF IJ ONE (10:09)
[2023-01-26] MEDS ORDERED: Depo-Medrol 40 MG/ML IM ONE (10:09)
[2023-01-26] MEDS ORDERED: DIPRIVAN 200 MG/20 ML IV ONE (12:04)
[2023-01-26] MEDS ORDERED: Lactated Ringers 1,000 ML IV ONE (15:03)
--- NOTE | 2023-01-26 17:02 | XRAY ---
Indication: Right L4-S1 RFA. Intraoperative fluoroscopy provided for 49 seconds. 5 digital spot image submitted for interpretation demonstrates posterior needle tips projecting over the expected right L4-S1 nerve roots. Correlate with intraoperative findings/report.
--- NOTE | 2023-01-26 17:21 | XRAY ---
49 seconds of fluoroscopy was used in surgery for a right L4-S1 RFA.
== END 2023-01-26 12:38 | disposition home or self-care (01) ==
LOC: SDC-PAIN 10:08
PROVIDERS: ATTEND Psychiatry & Neurology Pain Medicine
DX: M47.816 Spondylosis without myelopathy or radiculopathy, lumbar region (principal); E11.9 Type 2 diabetes mellitus without complications; Z79.899 Other long term (current) drug therapy
CPT/HCPCS: 64635; 64636; 72100; 77002; 82947; J1030; J2001; J2704

== ENCOUNTER 2023-01-27 09:39 | Day surgery (SDC) | payer MEDICARE ==
[2023-01-27] MEDS ORDERED: Depo-Medrol 40 MG/ML IM ONE (09:40)
[2023-01-27] MEDS ORDERED: XYLOCAINE 1% HCL 20 ML MDV IJ ONE (09:40)
[2023-01-27] MEDS ORDERED: BUPIVACAINE 0.5% VIAL IJ ONE (09:40)
[2023-01-27] MEDS ORDERED: DIPRIVAN 200 MG/20 ML IV ONE (11:21)
--- NOTE | 2023-01-27 12:26 | XRAY ---
Indication: Left L4-S1 RFA. Intraoperative fluoroscopy provided for 34 seconds. 5 digital spot image submitted for interpretation demonstrates posterior needle tips projecting over the expected left L4-S1 nerve roots. Correlate with intraoperative findings/report.
[2023-01-27] MEDS ORDERED: Lactated Ringers 1,000 ML IV ONE (12:28)
--- NOTE | 2023-01-27 12:33 | XRAY ---
34 seconds of fluoroscopy was used in surgery for a left L4-S1 RFA.
== END 2023-01-27 11:55 | disposition home or self-care (01) ==
LOC: SDC-PAIN 09:39
PROVIDERS: ATTEND Psychiatry & Neurology Pain Medicine
DX: M47.816 Spondylosis without myelopathy or radiculopathy, lumbar region (principal); E11.9 Type 2 diabetes mellitus without complications
CPT/HCPCS: 64635; 64636; 72100; 77002; 82947; J1030; J2704

== ENCOUNTER 2023-09-15 00:25 | Emergency (ER) | payer MEDICARE ==
--- NOTE | 2023-09-15 00:32 | ERPHSYRPT ---
- History of Present Illness Time Seen by Provider: 09/15/23 00:32 Source: patient, EMS, old records Exam Limitations: no limitations Physician History: This is a 67-year-old morbidly obese white female patient of Dr. 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 Piotr Johnson and pain specialist Dr. Connolly who does not see a human resource officer per her report and presents to the emergency department with worsening shortness of breath over the last 2 days. Patient has a history of CHF, COPD diabetes, hypertension, depression, chronic pain issues, hypothyroidism and hyperlipidemia. She states that she does use nebulizers and inhalers but is not on any steroids at this time. Patient admits to not taking her blood pressure medication as she does not want to be on all these different medications. Patient is an oxygen dependent COPD patient on 3 L oxygen via nasal cannula. She is a daily smoker of tobacco cigarettes. On her 3 L of oxygen, the patient is running 97 to 100%. Patient arrives via the paramedics to the emergency department on the cot where she is laughing and joking and in no distress. Patient states that she does not have air conditioning at her home. She states that as soon as she came into the emergency department where there is her condition, her breathing improved significantly. Timing/Duration: day(s) (2) Activities at Onset: none Severity of Dyspnea-Max: mild (Moderate) Severity of Dyspnea-Current: mild (To moderate) Possible Cause: occasional episodes Modifying Factors: Improves With: activity, other (No air conditioning at home makes her breathing worse) Associated Symptoms: No chest pain/discomfort, No loss of appetite, No weakness Allergies/Adverse Reactions: tramadol Allergy (Verified 09/15/23 00:29) Itching Home Medications: Levothyroxine Sodium [Synthroid] 88 mcg PO DAILY 09/20/13 [History] Simvastatin 40 mg [Zocor 40 mg] 40 mg PO HS 09/20/13 [History] Duloxetine HCl 30 mg [Cymbalta 30 MG Capsule] 60 mg PO DAILY 03/10/15 [History] Omeprazole 20 MG [Prilosec 20 mg] 20 mg PO BID 03/10/15 [History] ARIPiprazole [Abilify] 2 mg PO DAILY 04/08/16 [History] Budesonide/Formoterol Fumarate [Symbicort 160-4.5 Mcg Inhaler] 2 puffs IH BID 04/08/16 [History] Losartan Potassium 25 mg PO DAILY 04/08/16 [History] Magnesium Oxide [Magnesium] 400 mg PO DAILY 04/08/16 [History] Albuterol Sulfate [Ventolin Hfa] 1 puff IH BID 04/22/17 [History] Gabapentin 600 mg PO TID 04/22/17 [History] Allopurinol 100 mg [Zyloprim 100 mg] 100 mg PO DAILY 11/14/18 [History] Hydroxychloroquine Sulfate 200 mg PO BID 11/14/18 [History] Brimonidine Tartrate [Alphagan P 0.15%] 5 ml OP BID 05/01/19 [History] Latanoprost/Pf [Latanoprost 0.005% Eye Drop] 7.5 ml OP DAILY 05/01/19 [History] Methylphenidate HCl [Methylphenidate ER] 10 mg PO DAILY 05/01/19 [History] Nystatin 30 gm TP BID 05/01/19 [History] Tizanidine HCl 4 mg [Zanaflex 4 MG] 4 mg PO BID 05/01/19 [History] Liraglutide [Victoza 2-Rashaun] 1.8 mg SQ DAILY 05/08/19 [History] Hydrocodone/Acetaminophen [Hydrocodone-Acetamin 10-325 mg^^^] 1 tab PO QID PRN 11/22/19 [History] Hx Tetanus, Diphtheria Vaccination/Date Given: No Hx Influenza Vaccination/Date Given: Yes Hx Pneumococcal Vaccination/Date Given: Yes Travel Risk - International Travel Have you traveled outside of the country in past 3 weeks: No - Emerging Infectious Disease Are you exhibiting symptoms associated with any current EIDs: Yes Symptoms: Shortness of Breath - Review of Systems Constitutional: No Symptoms Eyes: No Symptoms Ears, Nose, & Throat: No Symptoms Respiratory: Dyspnea, Dyspnea on Exertion (YOON) Cardiac: No Symptoms Abdominal/Gastrointestinal: No Symptoms Genitourinary Symptoms: No Symptoms Musculoskeletal: No Symptoms Skin: No Symptoms Neurological: No Symptoms Psychological: No Symptoms Endocrine: No Symptoms Hematologic/Lymphatic: No Symptoms Immunological/Allergic: No Symptoms All Other Systems: Reviewed and Negative - Past Medical History Pertinent Past Medical History: Yes Neurological History: No Pertinent History ENT History: No Pertinent History Cardiac History: Angina, High Cholesterol, Hypertension Respiratory History: Bronchitis, COPD Endocrine Medical History: Diabetes Type II, Hyperthyroidism Musculoskeletal History: Arthritis GI Medical History: No Pertinent History History: No Pertinent History Psycho-Social History: No Pertinent History, Anxiety, Depression Female Reproductive Disorders: No Pertinent History Other Medical History: "Borderline diabetic"- takes victosa. chronic back and hip pain - Past Surgical History Past Surgical History: Yes Neuro Surgical History: No Pertinent History Cardiac: No Pertinent History Respiratory: No Pertinent History Gastrointestinal: No Pertinent History Genitourinary: No Pertinent History Musculoskeletal: Orthopedic Surgery Female Surgical History: Tubal Ligation Other Surgical History: left shoulder rota.cuff and spurs, right abd.large cyst or tumor non cancerous removed. - Social History Smoking Status: Current every day smoker Exposure to second hand smoke: No Drug Use: none Patient Lives Alone: No - Nursing Vital Signs Nursing Vital Signs: Initial Vital Signs Pulse Rate 85 09/15/23 00:28 Respiratory Rate 18 09/15/23 00:28 Blood Pressure 157/62 09/15/23 00:28 O2 Sat by Pulse Oximetry 100 09/15/23 00:28 Pain Scale Pain Intensity 0 - Physical Exam General Appearance: no apparent distress, alert, obese, other (Patient laughing and joking) Eye Exam: PERRL/EOMI, eyes nml inspection Ears, Nose, Throat Exam: hearing grossly normal, normal ENT inspection, normal pharynx Neck Exam: normal inspection, non-tender, supple, full range of motion Respiratory Exam: normal breath sounds, lungs clear, airway intact, No chest tenderness, No respiratory distress Cardiovascular/Chest Exam: normal heart sounds, regular rate/rhythm Abdominal/Gastrointestinal Exam: soft, normal bowel sounds, No tenderness Rectal Exam: not done Extremity Exam: non-tender, normal range of motion, normal inspection Neurologic Exam: alert, oriented x 3, cooperative, warehouseman II-XII nml as tested, normal mood/affect, nml cerebellar function, nml station & gait, sensation nml Skin Exam: normal color, warm, dry Lymphatic Exam: No adenopathy SpO2 Interpretation: normal O2 Delivery: Nasal Cannula (3 L oxygen via nasal cannula.) - Course Nursing assessment & vital signs reviewed: Yes EKG Interpreted by Me: RATE (83), Sinus Rhythm, NORMAL AXIS, NORMAL INTERVALS, NORMAL QRS, NORMAL ST-T, Other (No acute ischemia on today's twelve-lead EKG.) Ordered Tests: Active Orders 24 hr Category Date Time Status EKG-ER Only STAT Care 09/15/23 00:32 Active IV Insertion STAT Care 09/15/23 00:32 Active Oxygen-ED Only Nasal Cannula 3 lpm Care 09/15/23 00:32 Active ACO SDOH Referral ONCE Cons 09/15/23 00:43 Active CHEST 1 VIEW (PORTABLE) Stat Exams 09/15/23 00:32 Taken BLOOD CULTURE Stat Lab 09/15/23 00:50 Received CBC W DIFF Stat Lab 09/15/23 00:45 Completed CMP Stat Lab 09/15/23 00:45 Completed Lactic Acid Stat Lab 09/15/23 00:32 Completed MAGNESIUM Stat Lab 09/15/23 00:45 Completed NT PRO BNPII Stat Lab 09/15/23 00:45 Completed PROTIME WITH INR Stat Lab 09/15/23 00:45 Completed TROPONIN Q4H Lab 09/15/23 00:45 Completed TROPONIN Q4H Lab 09/15/23 04:45 Ordered TROPONIN Q4H Lab 09/15/23 08:45 Ordered Respiratory Therapy Assessment DAILY RT 09/15/23 01:01 Active Medication Summary Discontinued Medications Generic Name Dose Route Start Last Admin Trade Name Freq PRN Reason Stop Dose Admin Albuterol/Ipratropium 3 ml 09/15/23 01:00 09/15/23 01:03 Ipratropium/Albuterol Sulfate 3 Ml Ampul.Neb IH 09/15/23 01:01 3 ml STAT ONE Administration Albuterol/Ipratropium Confirm 09/15/23 01:01 Ipratropium/Albuterol Sulfate 3 Ml Ampul.Neb Administered 09/15/23 01:02 Dose 3 ml IH .STK-MED ONE Lab/Rad Data: Laboratory Result Diagrams 09/15/23 00:45 09/15/23 00:45 Laboratory Results 09/15/23 09/15/23 09/15/23 Range/Units 00:52 00:45 00:45 WBC (4.0-10.5) x10^3/uL RBC (4.1-5.4) x10^6/uL Hgb (12.0-16.0) g/dL Hct (35-47) % MCV (78-100) fL MCH (26-32) pg MCHC (32-36) g/dL RDW (11.5-14.0) % Plt Count (150-450) x10^3/uL MPV (7.5-11.0) fL Gran % (36.0-66.0) % Immature Gran % (Auto) (0.00-0.4) % Nucleat RBC Rel Count (0.00-0.1) % Eos # (Auto) (0-0.5) x10^3/uL Immature Gran # (Auto) (0.00-0.03) x10^3u/L Absolute Lymphs (auto) (1.0-4.6) x10^3/uL Absolute Monos (auto) (0.0-1.3) x10^3/uL Absolute Nucleated RBC (0.00-0.01) x10^3u/L Lymphocytes % (24.0-44.0) % Monocytes % (0.0-12.0) % Eosinophils % (0.00-5.0) % Basophils % (0.0-0.4) % Absolute Granulocytes (1.4-6.9) x10^3/uL Basophils # (0-0.4) x10^3/uL PT 10.9 (9.4-12.5) SECONDS INR 1.00 (0.8-3.0) Sodium (135-145) mmol/L Potassium (3.5-5.1) mmol/L Chloride (98-107) mmol/L Carbon Dioxide (22-30) mmol/L Anion Gap (5-15) MEQ/L BUN (7-17) mg/dL Creatinine (0.52-1.04) mg/dL Estimated GFR ML/MIN Glucose (74-106) mg/dL Lactic Acid (0.4-2.0) Calcium (8.4-10.2) mg/dL Magnesium (1.6-2.3) mg/dL Total Bilirubin (0.2-1.3) mg/dL AST (14-36) U/L ALT (0-35) U/L Alkaline Phosphatase (38-126) U/L Troponin I < 0.012 (0.000-0.033) ng/mL NT-Pro-B Natriuret Pep (<300) pg/mL Serum Total Protein (6.3-8.2) g/dL Albumin (3.5-5.0) g/dL Influenza Type A Ag NEGATIVE (NEGATIVE) Influenza Type B Ag NEGATIVE (NEGATIVE) RSV (PCR) NEGATIVE (NEGATIVE) SARS-CoV-2 (PCR) NEGATIVE (NEGATIVE) 09/15/23 09/15/23 09/15/23 Range/Units 00:45 00:45 00:32 WBC 7.6 (4.0-10.5) x10^3/uL RBC 4.01 L (4.1-5.4) x10^6/uL Hgb 11.7 L (12.0-16.0) g/dL Hct 37.4 (35-47) % MCV 93.3 (78-100) fL MCH 29.2 (26-32) pg MCHC 31.3 L (32-36) g/dL RDW 13.4 (11.5-14.0) % Plt Count 166 (150-450) x10^3/uL MPV 10.0 (7.5-11.0) fL Gran % 74.6 H (36.0-66.0) % Immature Gran % (Auto) 0.4 (0.00-0.4) % Nucleat RBC Rel Count 0.0 (0.00-0.1) % Eos # (Auto) 0.11 (0-0.5) x10^3/uL Immature Gran # (Auto) 0.03 (0.00-0.03) x10^3u/L Absolute Lymphs (auto) 1.28 (1.0-4.6) x10^3/uL Absolute Monos (auto) 0.43 (0.0-1.3) x10^3/uL Absolute Nucleated RBC 0.00 (0.00-0.01) x10^3u/L Lymphocytes % 16.9 L (24.0-44.0) % Monocytes % 5.7 (0.0-12.0) % Eosinophils % 1.5 (0.00-5.0) % Basophils % 0.9 (0.0-0.4) % Absolute Granulocytes 5.65 (1.4-6.9) x10^3/uL Basophils # 0.07 (0-0.4) x10^3/uL PT (9.4-12.5) SECONDS INR (0.8-3.0) Sodium 138 (135-145) mmol/L Potassium 3.9 (3.5-5.1) mmol/L Chloride 103 (98-107) mmol/L Carbon Dioxide 27 (22-30) mmol/L Anion Gap 12.2 (5-15) MEQ/L BUN 11 (7-17) mg/dL Creatinine 0.87 (0.52-1.04) mg/dL Estimated GFR 73.9 ML/MIN Glucose 111 H (74-106) mg/dL Lactic Acid 1.9 (0.4-2.0) Calcium 9.2 (8.4-10.2) mg/dL Magnesium 1.8 (1.6-2.3) mg/dL Total Bilirubin 0.50 (0.2-1.3) mg/dL AST 36 (14-36) U/L ALT 25 (0-35) U/L Alkaline Phosphatase 94 (38-126) U/L Troponin I (0.000-0.033) ng/mL NT-Pro-B Natriuret Pep 207 (<300) pg/mL Serum Total Protein 7.3 (6.3-8.2) g/dL Albumin 3.9 (3.5-5.0) g/dL Influenza Type A Ag (NEGATIVE) Influenza Type B Ag (NEGATIVE) RSV (PCR) (NEGATIVE) SARS-CoV-2 (PCR) (NEGATIVE) - Progress Progress: improved, re-examined Air Movement: good Progress Note: 09/15/23 00:46 My medical decision making and the assignment of moderate, complexity to this patient's medical issue is based on review of the patient's past medical history, review of the patient's medication list, review of patient drug allergy list, history present illness and physical findings on examination. This tessa karla's workup includes evaluation by respiratory therapy, placement of intravenous line, CBC, CMP, BNP, troponin level, twelve-lead EKG, lactic acid level, viral swabs and chest x-ray. Differential diagnosis includes but not limited to pneumonia, viral illness, COPD exacerbation, CHF exacerbation, myocardial infarction, arrhythmias 09/15/23 02:04 I interpreted the chest x-ray. This is a preliminary read and the patient is aware of this. I do not appreciate any acute cardiopulmonary process. I interpreted the patient's laboratory data results. Based on her laboratory data results, the patient does not have an acute, emergent medical issue. Blood Culture(s) Obtained: Yes Antibiotics given: No Counseled pt/family regarding: lab results, diagnosis, rad results Medical Desision Making - Social Determinants of Health Limited access to: transportation - Diagnostic Testing Diagnostic test were ordered, analyzed, and reviewed by me: Yes Radiological Interpretation: Interpreted by me - Risk of complications Low Risk: Low risk of morbidity from additional dx testing or treatment - Departure Departure Disposition: Home Clinical Impression: Shortness of breath Condition: Stable Critical Care Time: No Referrals: OZ NGUYEN MD [Primary Care Provider] - Follow up/PCP as directed Additional Instructions: Continue medications as prescribed. Call your primary care provider today, 09/15/2023, to make arrangements for further evaluation management including an appointment to be seen in the next 3 to 5 days.
[2023-09-15 00:43] VITALS: TEMP 100
[2023-09-15 00:59] LABS: Absolute Neutrophil Ct (ANC) 5.65 x10^3/uL (1.4-6.9); BASOPHIL % 0.9 % (0.0-0.4); Basophil (Absolute #) 0.07 x10^3/uL (0-0.4); Eosinophil % 1.5 % (0.00-5.0); Eosinophil (Absolute #) 0.11 x10^3/uL (0-0.5); Hematocrit 37.4 % (35-47); Hemoglobin 11.7 g/dL (12.0-16.0); IMMATURE GRAN # 0.03 x10^3u/L (0.00-0.03); IMMATURE GRAN % 0.4 % (0.00-0.4); Lymphocyte (Absolute #) 1.28 x10^3/uL (1.0-4.6); Lymphocytes % 16.9 % (24.0-44.0); Mean Cell Volume 93.3 fL (78-100); Mean Corpuscular Hemoglobin 29.2 pg (26-32); Mean Corpuscular Hgb Concent. 31.3 g/dL (32-36); Monocyte (Absolute #) 0.43 x10^3/uL (0.0-1.3); Monocytes % 5.7 % (0.0-12.0); Neutrophil % 74.6 % (36.0-66.0); Platelet Count 166 x10^3/uL (150-450); Red Blood Count 4.01 x10^6/uL (4.1-5.4); Red Cell Distribution Width 13.4 % (11.5-14.0); White Blood Count 7.6 x10^3/uL (4.0-10.5)
[2023-09-15] MEDS ORDERED: DUONEB 0.5-3 MG/3 ml Neb IH ONE (01:01)
[2023-09-15] MEDS: DUONEB 0.5-3 MG/3 ml Neb IH ONE (01:03)
[2023-09-15 01:14] LABS: PROTIME 10.9 SECONDS (9.4-12.5)
[2023-09-15 01:21] LABS: ALBUMIN 3.9 g/dL (3.5-5.0); ANION GAP 12.2 MEQ/L (5-15); BILIRUBIN,TOTAL 0.5 mg/dL (0.2-1.3); Calcium 9.2 mg/dL (8.4-10.2); Creatinine 1 0.87 mg/dL (0.52-1.04); EST GLOMERULAR FILTRATION RATE 73.9 ML/MIN; MAGNESIUM 1.8 mg/dL (1.6-2.3); Potassium 3.9 mmol/L (3.5-5.1); Total Protein 7.3 g/dL (6.3-8.2)
[2023-09-15 01:36] LABS: INFLUENZA A NEGATIVE (NEGATIVE); INFLUENZA B NEGATIVE (NEGATIVE); RESPIRATORY SYNCTIAL VIRUS NEGATIVE (NEGATIVE); SARS-CoV-2 Xpert Express NEGATIVE (NEGATIVE)
[2023-09-15 02:06] VITALS: BP 139/66; PULSE 98; RESP 17; O2SAT 98
--- NOTE | 2023-09-15 07:08 | XRAY ---
Indication: Short of breath. Comparison: October 10, 2021 Portable chest again demonstrates minimal bilateral mid to lower lung subsegmental atelectasis/scarring. No focal infiltrate, consolidation, or large effusion. Heart not enlarged for AP portable technique. Bony thorax intact again with osteopenia and mild degenerative changes. Impression: Continued nonacute chest with chronic features.
== END 2023-09-15 02:47 | disposition home or self-care (01) ==
LOC: ED 00:25
DX: R06.02 Shortness of breath (principal); J44.9 Chronic obstructive pulmonary disease, unspecified; E78.5 Hyperlipidemia, unspecified; I10 Essential (primary) hypertension; E11.9 Type 2 diabetes mellitus without complications; Z79.85 Long-term (current) use of injectable non-insulin antidiabetic drugs; Z79.899 Other long term (current) drug therapy; Z99.81 Dependence on supplemental oxygen; Z72.0 Tobacco use
CPT/HCPCS: 0241U; 36415; 71045; 80053; 83605; 83735; 83880; 84484; 85025; 85610; 87040; 87077; 87186; 93005; 94640; 99283; A9270-GY